=== PATIENT | male | born 1980 | race Asian ===

== ENCOUNTER 2017-02-27 16:16 | Inpatient (IN) | payer OTHER ==
[~2017-02-27] VITALS: Ht 172.7 cm; Wt 90.9 kg
[~2017-02-27 16:16] MED LIST: AMPH30CA3 PO; INSDGI SC; LISI-461 PO; METF-384 PO; NVLGI/PEN SC
[2017-02-27 17:52] LABS: URINE APPEARANCE CLEAR (CLEAR); URINE BILIRUBIN NEG (NEG); URINE COLOR YELLOW; URINE NITRITE NEG (NEG); URINE SPECIFIC GRAVITY 1.019 (1.000-1.030); UROBILINOGEN NEG (NEG)
--- NOTE | 2017-02-27 17:52 | EMERGENCY ROOM VISIT NOTE ---
History Report prepared by Layla: Howie Perez Under the Supervision of: Dr. Kee Morillo M.D. First contact with patient: 16:52 Chief Complaint: OTHER COMPLAINT Stated Complaint: KIDNEY DIALYSIS- PHYSICIAN REFERRED History of Present Illness The patient is a 37 year old male with a past medical history of chronic kidney disease, diabetes, hypertension, asthma, and hyperlipidemia who presents to the ED with a cc of high potassium and low GFR noticed earlier today. Positive leg swelling. Negative abdominal pain. The patient has an insulin pump. He was at a transplant screening, and he was told to go to his parking lot signaler who then told him to come to the ED. Source of History: patient Onset: earlier today Position: other (global) Quality: other (high potassium and low GFR) Associated Symptoms: No abdominal pain Note: Associated symptoms: Leg swelling Review of Systems See HPI for pertinent positives and negatives. A total of ten systems were reviewed and were otherwise negative. Past Medical & Surgical Medical Problems: (1) Asthma (2) Chronic kidney disease (3) Diabetes (4) HLD (hyperlipidemia) (5) HTN (hypertension) Family History Diabetes mellitus Social History Smoking Status: Never Smoker Marital Status: Housing Status: lives with family Occupation Status: unemployed Current/Historical Medications Scheduled Amlodipine (Norvasc), 10 MG PO DAILY Atorvastatin (Lipitor), 80 MG PO DAILY Carvedilol (Coreg), 25 MG PO BID Ergocalciferol (Vitamin D 27087 Unit), 50,000 UNIT PO WK Fenofibrate (Tricor), 54 MG PO DAILY Furosemide (Lasix), 20 MG PO UD Hydralazine Hcl (Apresoline), 100 MG PO BID Insulin Aspart (novoLOG INSULIN PUMP ), 1 EA N/A UD Losartan Potassium (Cozaar), 100 MG PO DAILY Mometasone Furoate-Formoterol (Dulera 100/5 Mcg), 2 PUFFS INH BID Ranitidine (Zantac), 150 MG PO DAILY Allergies Coded Allergies: No Known Allergies (Verified , 02/27/17) Physical Exam Vital Signs Date Time Temp Pulse Resp B/P (MAP) Pulse Ox O2 Delivery O2 Flow Rate FiO2 02/27/17 19:21 88 18 185/106 97 Room Air 02/27/17 17:32 87 02/27/17 16:22 36.7 101 18 151/86 94 Room Air Physical Exam GENERAL: Awake, alert, well-appearing, NAD HENT: Normocephalic, atraumatic. EYES: Normal conjunctiva. Sclera non-icteric. NECK: Supple. No nuchal rigidity. FROM. RESPIRATORY: Bibasilar crackles, no rhonchi, wheezing, CARDIAC: RRR, no MRG ABDOMEN: Soft, NTND, BS+ MSK: 2+ pitting edema in bilateral LE. No chest wall TTP NEURO: GCS 15, CN 2-12 intact, moves all 4s on command SKIN: No rash or jaundice noted. Medical Decision & Procedures ER Provider Diagnostic Interpretation: Radiology results as stated below per my review and radiologist interpretation: (RENAL)RETROPERITON COMP HISTORY: Abnormal urinalysis hyperK COMPARISON: None. FINDINGS: Right kidney: Maximum dimension 12.3 cm. Normal corticomedullary differentiation and cortical thickness. Left kidney: Maximum dimension 12.0 cm. Normal corticomedullary differentiation and cortical thickness. Bladder: No bladder wall thickening. The bilateral ureteral jets were identified. IMPRESSION: Normal renal ultrasound. No evidence for hydronephrosis. The above report was generated using voice recognition software. It may contain grammatical, syntax or spelling errors. Electronically signed by: Fer Zavala M.D. 02/27/2017 7:06 PM Dictated Date/Time: 02/27/2017 7:05 PM Laboratory Results 02/27/17 17:33 Red Blood Count 3.65, Mean Corpuscular Volume 86.6, Mean Corpuscular Hemoglobin 29.3, Mean Corpuscular Hemoglobin Concent 33.9, Mean Platelet Volume 9.5, Neutrophils (%) (Auto) 71.7, Lymphocytes (%) (Auto) 15.8, Monocytes (%) (Auto) 6.0, Eosinophils (%) (Auto) 5.6, Basophils (%) (Auto) 0.3, Neutrophils # (Auto) 6.35, Lymphocytes # (Auto) 1.40, Monocytes # (Auto) 0.53, Eosinophils # (Auto) 0.50, Basophils # (Auto) 0.03 02/27/17 17:33 Test 02/27/17 17:33 02/27/17 17:35 02/27/17 19:35 02/27/17 19:36 White Blood Count 8.86 K/uL (4.8-10.8) Red Blood Count 3.65 M/uL (4.7-6.1) Hemoglobin 10.7 g/dL (14.0-18.0) Hematocrit 31.6 % (42-52) Mean Corpuscular Volume 86.6 fL (80-100) Mean Corpuscular Hemoglobin 29.3 pg (25-34) Mean Corpuscular Hemoglobin Concent 33.9 g/dl (32-36) Platelet Count 384 K/uL (130-400) Mean Platelet Volume 9.5 fL (7.4-10.4) Neutrophils (%) (Auto) 71.7 % Lymphocytes (%) (Auto) 15.8 % Monocytes (%) (Auto) 6.0 % Eosinophils (%) (Auto) 5.6 % Basophils (%) (Auto) 0.3 % Neutrophils # (Auto) 6.35 K/uL (1.4-6.5) Lymphocytes # (Auto) 1.40 K/uL (1.2-3.4) Monocytes # (Auto) 0.53 K/uL (0.11-0.59) Eosinophils # (Auto) 0.50 K/uL (0-0.5) Basophils # (Auto) 0.03 K/uL (0-0.2) RDW Standard Deviation 38.9 fL (36.4-46.3) RDW Coefficient of Variation 12.3 % (11.5-14.5) Immature Granulocyte % (Auto) 0.6 % Immature Granulocyte # (Auto) 0.05 K/uL (0.00-0.02) Anion Gap 4.0 mmol/L (3-11) Est Creatinine Clear Calc Drug Dose 20.1 ml/min Estimated GFR () 14.0 Estimated GFR (Non- 12.1 BUN/Creatinine Ratio 7.6 (10-20) Calcium Level 7.8 mg/dl (8.5-10.1) Phosphorus Level 4.6 mg/dl (2.5-4.9) Magnesium Level 1.8 mg/dl (1.8-2.4) Total Bilirubin 0.3 mg/dl (0.2-1) Direct Bilirubin mg/dl (0-0.2) Aspartate Amino Transf (AST/SGOT) 33 U/L (15-37) Alanine Aminotransferase (ALT/SGPT) 35 U/L (12-78) Alkaline Phosphatase 62 U/L (45-117) Total Creatine Kinase 2423 U/L (39-308) Total Protein 6.1 gm/dl (6.4-8.2) Albumin 2.2 gm/dl (3.4-5.0) Lipase 202 U/L (73-393) Chemistry Specimen Hemolysis Urine Color YELLOW Urine Appearance CLEAR (CLEAR) Urine pH 7.0 (4.5-7.5) Urine Specific [place] 1.019 (1.000-1.030) Urine Protein 4+ (NEG) Urine Glucose (UA) 3+ (NEG) Urine Ketones NEG (NEG) Urine Occult Blood 1+ (NEG) Urine Nitrite NEG (NEG) Urine Bilirubin NEG (NEG) Urine Urobilinogen NEG (NEG) Urine Leukocyte Esterase NEG (NEG) Urine WBC (Auto) 1-5 /hpf (0-5) Urine RBC (Auto) 0-4 /hpf (0-4) Urine Hyaline Casts (Auto) 1-5 /lpf (0-5) Urine Epithelial Cells (Auto) 10-20 /lpf (0-5) Urine Bacteria (Auto) NEG (NEG) Urine Random Creatinine 52.0 mg/dl Urine Random Total Protein 571.8 mg/dl (0-11.9) Urine Protein/Creatinine Ratio 11.0 (0-0.2) Laboratory results reviewed by me ECG Indication: other (high potassium) Rate (beats per minute): 87 Rhythm: normal sinus Findings: other (Normal CA, QRS and QTC. Downward sloping ST segments in the inferior leads 3 and AVF. No other ST changes or T wave inversions.) ED Course 1731: The patient was evaluated in room B3. A complete history and physical exam was performed. 1849: I reevaluated the patient, and I updated him on the treatment plan. 1921: Discussed the patient's case with Dr. Chan. The patient will be evaluated for further treatment and disposition. Medical Decision The patient is a 37 year old male with a past medical history of chronic kidney disease, diabetes, hypertension, asthma, and hyperlipidemia who presents to the ED with a cc of high potassium and low GFR noticed earlier today. Positive leg swelling. Negative abdominal pain. Differential Diagnoses include: Worsening CKD, Obstructive uropathy, diabetic nephropathy. Patient was referred here by his parking lot signaler due to concerns of hyperkalemia which was 6 and clinic. Patient was evaluated at the bedside EKG showed normal CA and QRS intervals. He did not have PTs in all leads at this time. Patient did have a creatinine of 5.5 and potassium of 5.5. He spoke with the parking lot signaler stated he could be given Kayexalate 30 now nothing by mouth at midnight. Spoke with the hospitalist who agreed that the patient benefit from further inpatient treatment. I also told him that the parking lot signaler would like a vascular consultation for a permacath in the morning. Patient was admitted. Medication Reconcilliation Current Medication List: was personally reviewed by me Blood Pressure Screening Patient's blood pressure: Elevated blood pressure Monitored by the hospitalist Consults Time Called: 1906 Consulting Physician: Dr. Chan Returned Call: 1921 Discussed the patient's case with Dr. Chan. The patient will be evaluated for further treatment and disposition. Impression Primary Impression: Hyperkalemia Additional Impression: Acute renal failure Scribe Attestation The scribe's documentation has been prepared under my direction and personally reviewed by me in its entirety. I confirm that the note above accurately reflects all work, treatment, procedures, and medical decision making performed by me. Departure Information Dispostion Being Evaluated By Hospitalist Referrals Azael Keller M.D.(YESSENIA) (PCP) Patient Instructions [facility] Problem Qualifiers Additional Impression: Acute renal failure Acute renal failure type: unspecified Qualified Codes: N17.9 - Acute kidney failure, unspecified
[2017-02-27 17:54] LABS: MANUAL MICROSCOPIC REQUIRED? NO; REVIEW REQ? NO
[2017-02-27 17:59] LABS: BASO % 0.3 %; BASO ABS # 0.03 K/uL (0-0.2); COMPLETE YES; EOS % 5.6 %; HEMATOCRIT 31.6 % (42-52); IG% 0.6 %; LYMPH % 15.8 %; MEAN CELL VOLUME 86.6 fL (80-100); MEAN CORPUSCULAR HEMOGLOBIN 29.3 pg (25-34); MEAN CORPUSCULAR HGB CONC 33.9 g/dl (32-36); MEAN PLATELET VOLUME 9.5 fL (7.4-10.4); NEUT % 71.7 %; PLATELET COUNT 384 K/uL (130-400); RED BLOOD COUNT 3.65 M/uL (4.7-6.1); WHITE BLOOD COUNT 8.86 K/uL (4.8-10.8)
[2017-02-27] MEDS ORDERED: MOME100A INH (18:09)
[2017-02-27] MEDS ORDERED: AMLO-114 PO (18:09)
[2017-02-27] MEDS ORDERED: INSPMPNVLG (18:09)
[2017-02-27] MEDS ORDERED: FURO-85 PO (18:09)
[2017-02-27] MEDS ORDERED: ZNTT/150 PO (18:09)
[2017-02-27] MEDS ORDERED: ERGO500037 PO (18:09)
[2017-02-27] MEDS ORDERED: ATOR-26 PO (18:09)
[2017-02-27] MEDS ORDERED: LOSA1TAB38 PO (18:09)
[2017-02-27] MEDS ORDERED: CARV25TA2 PO (18:09)
[2017-02-27] MEDS ORDERED: FENO54TA PO (18:09)
[2017-02-27] MEDS ORDERED: HYDR100T12 PO (18:09)
[2017-02-27 18:13] LABS: URINE TOTAL PROTEIN 571.8 mg/dl (0-11.9)
[2017-02-27 18:58] LABS: ALKALINE PHOSPHATASE 62 U/L (45-117); ALT/SGPT 35 U/L (12-78); AST/SGOT 33 U/L (15-37); BLOOD UREA NITROGEN 42 mg/dl (7-18); BUN/CREATININE RATIO 7.6 (10-20); CALCIUM 7.8 mg/dl (8.5-10.1); CARBON DIOXIDE 24 mmol/L (21-32); CHLORIDE 111 mmol/L (98-107); MAGNESIUM 1.8 mg/dl (1.8-2.4); PHOSPHORUS 4.6 mg/dl (2.5-4.9); POTASSIUM 5.5 mmol/L (3.5-5.1); SODIUM 139 mmol/L (136-145)
--- NOTE | 2017-02-27 19:08 | DIAGNOSTIC IMAGING REPORT ---
(RENAL)RETROPERITON COMP HISTORY: Abnormal urinalysis hyperK COMPARISON: None. FINDINGS: Right kidney: Maximum dimension 12.3 cm. Normal corticomedullary differentiation and cortical thickness. Left kidney: Maximum dimension 12.0 cm. Normal corticomedullary differentiation and cortical thickness. Bladder: No bladder wall thickening. The bilateral ureteral jets were identified. IMPRESSION: Normal renal ultrasound. No evidence for hydronephrosis. The above report was generated using voice recognition software. It may contain grammatical, syntax or spelling errors. Electronically signed by: Fer Zavala M.D. 02/27/2017 7:06 PM Dictated Date/Time: 02/27/2017 7:05 PM
[2017-02-27 19:10] LABS: GLUCOSE 341 mg/dl (70-99)
[2017-02-27] MEDS ORDERED: INSULIN HUMAN REGULAR PER UNIT 10 UNITS in SYRINGE 0 ML IV STA (19:35)
[2017-02-27] MEDS ORDERED: INSULIN HUMAN REGULAR IV BOLUS 10 UNIT in SYRINGE 0 ML IV SCH (20:15)
[2017-02-27 20:32] LABS: BETA-HYDROXYBUTYRATE 0.55 mg/dL (0.2-2.81)
[2017-02-27 20:52] LABS: PARTIAL THROMBOPLASTIN RATIO 1.1
--- NOTE | 2017-02-27 21:30 | DIAGNOSTIC IMAGING REPORT ---
CHEST ONE VIEW PORTABLE HISTORY: renal failure COMPARISON: None. FINDINGS: The lungs are clear. The heart is borderline enlarged. No pleural effusions. No pneumothorax. IMPRESSION: Borderline enlargement cardiac silhouette. No acute process within the chest. Electronically signed by: Leroy Dill M.D. 02/27/2017 9:29 PM Dictated Date/Time: 02/27/2017 9:28 PM
[2017-02-27] MEDS ORDERED: ACETAMINOPHEN 325 MG TAB PO PRN (22:15)
[2017-02-27] MEDS ORDERED: NITROGLYCERIN 0.4 MG SL PER TAB CHARGE SL PRN (22:15)
[2017-02-27] MEDS ORDERED: ONDANSETRON INJ 2 MG/ML 2 ML VIAL IV PRN (22:15)
[2017-02-27] MEDS ORDERED: HYDROmorphone INJ 0.5 MG/0.5 ML SYR IV PRN (22:15)
[2017-02-27] MEDS ORDERED: TRAMADOL HCL 50 MG TAB PO PRN (22:15)
[2017-02-27] MEDS ORDERED: PHARMACY GLYCEMIC MGMT CONSULT PRN (22:25)
[2017-02-27] MEDS ORDERED: INSULIN IV INFUSION PROTOCOL SCH (22:44)
[2017-02-27] MEDS ORDERED: DC ALL PREVIOUSLY ORDERED DIABETES MEDS STA (22:44)
[2017-02-27] MEDS ORDERED: MODERATE STRESS LEVEL ONE (22:45)
[2017-02-27] MEDS ORDERED: INSULIN PROTOCOL GOAL RANGE ONE (22:45)
[2017-02-27 23:00] VITALS: BP 196/99; PULSE 98; TEMP 36.8; O2SAT 96; BMI 30.6
[2017-02-27] MEDS ORDERED: CARVEDILOL 25 MG TAB PO ONE (23:30)
[2017-02-27] MEDS: SODIUM CHLORIDE 0.9% 1000ML 1,000 ML IV SCH (23:37)
[2017-02-27] MEDS ORDERED: PNEUMOCOCCAL ADMINISTRATION CHARGE ONE (23:45)
[2017-02-27] MEDS ORDERED: PNEUMOCOCCAL POLYSACCHARIDES 25 MCG/0.5 ML VIAL/SYR IM. ONE (23:45)
[2017-02-28] VITALS (18 sets, daily range): BP systolic 133–166; BP diastolic 86–97; PULSE 86–105; TEMP 36.6–37; O2SAT 94–95; BMI 30.8
[2017-02-28] MEDS: INSULIN IV INFUSION PROTOCOL SCH ×3 (01:15→05:10)
[2017-02-28 06:28] LABS: BASO % 0.2 %; BASO ABS # 0.02 K/uL (0-0.2); COMPLETE YES; EOS % 7.4 %; HEMATOCRIT 29.4 % (42-52); IG% 0.2 %; LYMPH % 23.8 %; LYMPH ABS # 2.06 K/uL (1.2-3.4); MEAN CELL VOLUME 87.2 fL (80-100); MEAN CORPUSCULAR HEMOGLOBIN 29.4 pg (25-34); MEAN CORPUSCULAR HGB CONC 33.7 g/dl (32-36); MEAN PLATELET VOLUME 9.3 fL (7.4-10.4); MONO % 7.9 %; NEUT % 60.5 %; PLATELET COUNT 334 K/uL (130-400); RED BLOOD COUNT 3.37 M/uL (4.7-6.1); WHITE BLOOD COUNT 8.66 K/uL (4.8-10.8)
--- NOTE | 2017-02-28 07:01 | HISTORY & PHYSICAL EXAMINATION ---
DATE OF ADMISSION: 02/27/2017 PRIMARY CARE PHYSICIAN: Dr. Keller. CHIEF COMPLAINT: Abnormal blood work. HISTORY OF PRESENT ILLNESS: History obtained from the patient and records. Medical history significant for DM1 on an insulin pump, hypertension, hyperlipidemia, chronic anemia (baseline hemoglobin 9-10. ADD as per records, possible sleep apnea as per records; chronic renal insufficiency (baseline creatinine of 4). Patient saw his suit attendant yesterday for followup of worsening leg edema at the end of the day. No chest pain, no shortness of breath. Still making urine. Outpatient creatinine noted to be 5.3, potassium 6. Patient sent to the Emergency Room by suit attendant. MEDICAL HISTORY: As above. SURGERIES: He has had kidney biopsy procedures, eye procedures, appendectomy. HOME MEDICATIONS: Include Norvasc, Lipitor, Coreg, vitamin D, Lasix, Tricor, hydralazine, insulin pump, Cozaar, Dulera and Zantac. ALLERGIES. No known drug allergies. FAMILY HISTORY: Diabetes. PERSONAL AND SOCIAL HISTORY: Nonsmoker, no chronic intake of alcoholic beverages. A bar employee. REVIEW OF SYSTEMS: As per HPI, all other ROS negative. PHYSICAL EXAMINATION: VITAL SIGNS: Blood pressure was noted to be 185/106, pulse rate 88, RR 18, temperature 36.8, sats 97 on room air. GENERAL: Noted to be obese, no respiratory distress. SKIN: Sallow. HEENT: Pale palpebral conjunctivae. Dry mucosa. NECK: Short. CHEST: Decreased breath sounds. HEART: Regular rate and rhythm. ABDOMEN: Some distention, nontender. EXTREMITIES: min LE edema. No tenderness NEUROLOGIC: No gross focality. LABS: Hemoglobin was noted to be 10.7, hematocrit 31, white cell count is 8.8, platelets 184. Sodium noted to be 136, potassium 5.5, chloride 111, CO2 24, BUN 42, creatinine 5.5, glucose 341. CK was noted to be 2234. Hemoglobin A1c from October 2016 was noted to be 6.2. Renal ultrasound was normal. Chest x-ray showed border line cardiac enlargement. EKG as per my interpretation : normal sinus rhythm, no ischemia. UA occult blood. ASSESSMENT: 1. Hyperkalemia, acute renal failure on chronic kidney disease, possible end-stage renal disease 2. creatine phosphokinase elevation ? rhabdomyolysis 3. leg swelling secondary to kidney dysfunction, rule out deep venous thrombosis. 4. Chronic anemia, secondary to chronic kidney disease hemoglobin at baseline. 5. Hypertension, elevated. 6. DM1, on insulin pump. Currently, hyperglycemic recent outpatient hemoglobin A1c however shows good control PLAN: PCU mainly for hyperkalemia. Regular IV insulin to effect the cellular redistribution. Appropriate to hold home ARB for now IV fluids. Follow CPK Nephrology consult RE ARF on CKD. ER provider already in touch with suit attendant hollow tile partition erector, Dr. Vital. He recommends Vascular Surgery consult in the morning for dialysis access. Lower extremity Doppler ultrasound. Rule out DVT Facilitate nighttime BP meds Pharmacy glycemic control consult. Patient due for hemoglobin A1c recheck. DVT prophylaxis, Heparin subQ. Full code. MTDD
[2017-02-28 07:04] LABS: PROTHROMBIN TIME (PATIENT) 10.3 SECONDS (9.0-12.0)
--- NOTE | 2017-02-28 07:07 | DIAGNOSTIC IMAGING REPORT ---
ULTRASOUND VENOUS DOPPLER LWR EXT BILA CLINICAL HISTORY: leg swelling COMPARISON STUDY: No previous studies for comparison. FINDINGS: Real-time and color flow Doppler imaging were performed. Flow was seen within the femoral, popliteal and calf veins with no intraluminal thrombus demonstrated. The saphenous vein is patent. IMPRESSION: No evidence of lower extremity DVT. Electronically signed by: Alphonse Sharma M.D. 02/28/2017 7:06 AM Dictated Date/Time: 02/28/2017 7:06 AM
[2017-02-28 07:16] LABS: BUN/CREATININE RATIO 7.3 (10-20); CALCIUM 8.2 mg/dl (8.5-10.1); CREATININE 5.5 mg/dl (0.60-1.40)
[2017-02-28 07:49] LABS: ESTIMATED AVERAGE GLUCOSE 180 mg/dl; HA1C FLAG Normal (Normal)
[2017-02-28] MEDS: FENOFIBRATE 48 MG TAB PO SCH (07:58)
[2017-02-28] MEDS: AMLODIPINE BESYLATE 5 MG TAB PO SCH (07:58)
[2017-02-28] MEDS: CARVEDILOL 25 MG TAB PO SCH ×2 (07:58→21:50)
[2017-02-28] MEDS: RANITIDINE HCL 150 MG TAB PO SCH (07:58)
[2017-02-28] MEDS: INSULIN ASPART 100 UNITS/ML 3 ML PEN SC SCH ×4 (07:59→21:48)
[2017-02-28] MEDS: HEPARIN SOD 5000 UNIT/0.5 ML CARP SQ SCH ×2 (07:59→16:20)
[2017-02-28] MEDS ORDERED: INSULIN REGULAR 250 UNITS in SODIUM CHLORIDE 0.9% 250ML 250 ML IV SCH (08:45)
[2017-02-28] MEDS ORDERED: ATORVASTATIN 40 MG TAB PO SCH (09:00)
[2017-02-28 09:25] LABS: HEPATITIS B AB POS
--- NOTE | 2017-02-28 10:28 | Progress Note ---
Subjective Date of Service: Feb 28, 2017. Subjective Pt evaluation today including: conversation w/ patient, physical exam, lab review, review of studies, review of inpatient medication list Saw/examined the patient in room 209 Patient states he has no complaints; does admit to worsening swelling of the lower extremities Was sent over by sales planning manager's office due to worsening kidney function Currently states he is tired, but otherwise, no other issues to note Problem List Medical Problems: (1) Acute renal failure Status: Acute (2) Hyperkalemia Status: Acute Review of Systems Constitutional: No fever, No chills Respiratory: No cough, No sputum, No shortness of breath Cardiac: + edema, No chest pain Abdomen: No pain, No nausea, No vomiting, No diarrhea Psychiatric: No depression symptoms Heme: No abnormal bleeding/bruising Medications Current Inpatient Medications Medications (Trade) Dose Ordered Sig/Radha Route Start Time Stop Time Status Last Admin Dose Admin Hydralazine HCl (Apresoline Tab) 100 mg BID PO 02/27/17 21:00 03/29/17 20:59 02/28/17 07:58 100 MG Sodium Chloride 1,000 ml @ 60 mls/hr [id number] IV 02/27/17 22:15 03/29/17 22:14 02/27/17 23:37 60 MLS/HR Heparin Sodium (Porcine) (Heparin Sq 5000 Unit/0.5ml) 5,000 unit Q8H SQ 02/28/17 08:00 03/30/17 07:59 02/28/17 07:59 5,000 UNIT Acetaminophen (Tylenol Tab) 650 mg Q4H PRN PO 02/27/17 22:15 03/29/17 22:14 Nitroglycerin (Nitrostat Tab) 0.4 mg UD PRN SL 02/27/17 22:15 03/29/17 22:14 Amlodipine Besylate (Norvasc Tab) 10 mg DAILY PO 02/28/17 09:00 03/30/17 08:59 02/28/17 07:58 10 MG Carvedilol (Coreg Tab) 25 mg BID PO 02/28/17 09:00 03/30/17 08:59 02/28/17 07:58 25 MG Ranitidine HCl (zANTac TAB) 150 mg DAILY PO 02/28/17 09:00 03/30/17 08:59 8/17/17 07:58 150 MG Fenofibrate (Tricor Tab) 48 mg DAILY PO 02/28/17 09:00 03/30/17 08:59 02/28/17 07:58 48 MG Miscellaneous Information (Order Awaiting Action) 1 ea QS N/A 03/01/17 08:00 03/31/17 07:59 Hydromorphone HCl (Dilaudid Inj) 0.5 mg Q3H PRN IV 02/27/17 22:15 03/13/17 22:14 Tramadol HCl (Ultram Tab) 25 mg Q6H PRN PO 02/27/17 22:15 03/29/17 22:14 Ondansetron HCl (Zofran Inj) 4 mg Q6H PRN IV 02/27/17 22:15 03/29/17 22:14 Miscellaneous Information (Consult Glycemic Management Pharmacy) 1 ea UD PRN N/A 02/27/17 22:25 03/29/17 22:24 Insulin Aspart (novoLOG ASPART) [facility] 02/28/17 08:00 03/30/17 08:59 Insulin Human Regular 250 units/ Sodium Chloride 252.5 ml @ 0 mls/hr DAILY@1130 IV 02/28/17 08:45 03/30/17 08:44 02/28/17 09:23 1 MLS/HR Objective Vital Signs Date Time Temp Pulse Resp B/P (MAP) Pulse Ox O2 Delivery O2 Flow Rate FiO2 02/28/17 07:56 37.0 86 20 157/88 (111) 95 Room Air 02/28/17 03:51 Room Air 02/28/17 03:10 36.9 86 16 147/89 (108) 95 Room Air 02/28/17 01:25 36.9 94 18 164/96 (118) 95 Room Air 02/27/17 23:00 36.8 98 22 196/99 96 Room Air 02/27/17 22:30 97 18 187/108 97 Room Air 02/27/17 19:21 88 18 185/106 97 Room Air 02/27/17 17:32 87 02/27/17 16:22 36.7 101 18 151/86 94 Room Air Physical Exam General Appearance: no apparent distress Respiratory/Chest: chest non-tender, lungs clear, normal breath sounds, no respiratory distress, no accessory muscle use Cardiovascular: regular rate, rhythm, no gallop, no JVD, no murmur Abdomen: normal bowel sounds, non tender, soft Extremities: + pertinent finding (+1-2 pitting edema b/l LE) Neurologic/Psychiatric: no motor/sensory deficits, alert, normal mood/affect Laboratory Results Last 24 Hours Test 02/27/17 17:33 02/27/17 17:35 02/27/17 22:39 02/27/17 23:19 White Blood Count 8.86 K/uL Red Blood Count 3.65 M/uL Hemoglobin 10.7 g/dL Hematocrit 31.6 % Mean Corpuscular Volume 86.6 fL Mean Corpuscular Hemoglobin 29.3 pg Mean Corpuscular Hemoglobin Concent 33.9 g/dl Platelet Count 384 K/uL Mean Platelet Volume 9.5 fL Neutrophils (%) (Auto) 71.7 % Lymphocytes (%) (Auto) 15.8 % Monocytes (%) (Auto) 6.0 % Eosinophils (%) (Auto) 5.6 % Basophils (%) (Auto) 0.3 % Neutrophils # (Auto) 6.35 K/uL Lymphocytes # (Auto) 1.40 K/uL Monocytes # (Auto) 0.53 K/uL Eosinophils # (Auto) 0.50 K/uL Basophils # (Auto) 0.03 K/uL RDW Standard Deviation 38.9 fL RDW Coefficient of Variation 12.3 % Immature Granulocyte % (Auto) 0.6 % Immature Granulocyte # (Auto) 0.05 K/uL Activated Partial Thromboplast Time 29.8 SECONDS Partial Thromboplastin Ratio 1.1 Sodium Level 139 mmol/L Potassium Level 5.5 mmol/L 4.6 mmol/L Chloride Level 111 mmol/L Carbon Dioxide Level 24 mmol/L Anion Gap 4.0 mmol/L Blood Urea Nitrogen 42 mg/dl Creatinine 5.50 mg/dl Est Creatinine Clear Calc Drug Dose 20.1 ml/min Estimated GFR () 14.0 Estimated GFR (Non- 12.1 BUN/Creatinine Ratio 7.6 Random Glucose 341 mg/dl Estimated Average Glucose 180 mg/dl Hemoglobin A1c 7.9 % Calcium Level 7.8 mg/dl Phosphorus Level 4.6 mg/dl Magnesium Level 1.8 mg/dl Total Bilirubin 0.3 mg/dl Direct Bilirubin mg/dl Aspartate Amino Transf (AST/SGOT) 33 U/L Alanine Aminotransferase (ALT/SGPT) 35 U/L Alkaline Phosphatase 62 U/L Total Creatine Kinase 2423 U/L Total Protein 6.1 gm/dl Albumin 2.2 gm/dl Lipase 202 U/L Beta-Hydroxybutyric Acid 0.55 mg/dL Thyroid Stimulating Hormone (TSH) 4.190 uIu/ml Chemistry Specimen Hemolysis Urine Color YELLOW Urine Appearance CLEAR Urine pH 7.0 Urine Specific [place] 1.019 Urine Protein 4+ Urine Glucose (UA) 3+ Urine Ketones NEG Urine Occult Blood 1+ Urine Nitrite NEG Urine Bilirubin NEG Urine Urobilinogen NEG Urine Leukocyte Esterase NEG Urine WBC (Auto) 1-5 /hpf Urine RBC (Auto) 0-4 /hpf Urine Hyaline Casts (Auto) 1-5 /lpf Urine Epithelial Cells (Auto) 10-20 /lpf Urine Bacteria (Auto) NEG Urine Random Creatinine 52.0 mg/dl Urine Random Total Protein 571.8 mg/dl Urine Protein/Creatinine Ratio 11.0 Bedside Glucose 115 mg/dl Test 02/28/17 01:18 02/28/17 03:13 02/28/17 05:14 02/28/17 05:47 Bedside Glucose 84 mg/dl 98 mg/dl 107 mg/dl White Blood Count 8.66 K/uL Red Blood Count 3.37 M/uL Hemoglobin 9.9 g/dL Hematocrit 29.4 % Mean Corpuscular Volume 87.2 fL Mean Corpuscular Hemoglobin 29.4 pg Mean Corpuscular Hemoglobin Concent 33.7 g/dl Platelet Count 334 K/uL Mean Platelet Volume 9.3 fL Neutrophils (%) (Auto) 60.5 % Lymphocytes (%) (Auto) 23.8 % Monocytes (%) (Auto) 7.9 % Eosinophils (%) (Auto) 7.4 % Basophils (%) (Auto) 0.2 % Neutrophils # (Auto) 5.24 K/uL Lymphocytes # (Auto) 2.06 K/uL Monocytes # (Auto) 0.68 K/uL Eosinophils # (Auto) 0.64 K/uL Basophils # (Auto) 0.02 K/uL RDW Standard Deviation 39.6 fL RDW Coefficient of Variation 12.3 % Immature Granulocyte % (Auto) 0.2 % Immature Granulocyte # (Auto) 0.02 K/uL Prothrombin Time 10.3 SECONDS Prothromb Time International Ratio 1.0 Sodium Level 145 mmol/L Potassium Level 5.0 mmol/L Chloride Level 115 mmol/L Carbon Dioxide Level 24 mmol/L Anion Gap 6.0 mmol/L Blood Urea Nitrogen 39 mg/dl Creatinine 5.50 mg/dl Est Creatinine Clear Calc Drug Dose 20.0 ml/min Estimated GFR () 14.0 Estimated GFR (Non- 12.1 BUN/Creatinine Ratio 7.3 Random Glucose 116 mg/dl Calcium Level 8.2 mg/dl Total Creatine Kinase 1322 U/L Test 02/28/17 08:00 02/28/17 08:33 Bedside Glucose 148 mg/dl Hepatitis B Surface Antigen NEG Hepatitis B Surface Antibody POS Assessment and Plan This is a 37 year old male with a PMH of type 1 diabetes on an insulin pump, diabetic nephropathy and CKD stage 4, diabetic retinopathy, HTN and LVH, HLD presents with bilateral lower extremity edema and worsening kidney function CHIDI superimposed on CKD stage 4 worsening kidney function, creatinine increasing from mid 3's to 4's and now 5.5 lower extremity edema, was seen by nephrology in the office on 02/27 and sent over due to worsening kidney function will likely need dialysis vascular surgery consulted for vascular access nephrology consulted for possible dialysis Type 1 Diabetes Mellitus insulin pump discontinued while inpatient insulin drip started, glycemic control consulted Ha1c = 7.9% should follow-up with endocrinology Uncontrolled HTN patient with uncontrolled HTN holding ARB for now due to kidney function, restart when okay with nephrology currently on hydralazine 100mg BID and amlodipine 10mg daily, Coreg 25mg BID max dose of amlodipine and Coreg, can increase hydralazine if needed DVT ppx subq heparin FULL CODE
--- NOTE | 2017-02-28 11:45 | Procedure Note ---
Pre-Mod Sedation Assessment General Date of Moderate Sedation: Feb 28, 2017. Vital Signs: Vital Signs Past 12 Hours Date Time Temp Pulse Resp B/P (MAP) Pulse Ox O2 Delivery O2 Flow Rate FiO2 02/28/17 08:00 Room Air 02/28/17 07:56 37.0 86 20 157/88 (111) 95 Room Air 02/28/17 03:51 Room Air 02/28/17 03:10 36.9 86 16 147/89 (108) 95 Room Air 02/28/17 01:25 36.9 94 18 164/96 (118) 95 Room Air Pre-Sedation Airway Assessment Oral Cavity: WNL Smoking Status: Never Smoker Mallampati Classification: Class I ASA Classification: Class IV Notes The planned sedation has been discussed with the patient and consent obtained. I have identified the patient, determined the appropriateness of sedation and have assessed the patient immediately prior to the procedure. All medicine(s) and interventions are by my order.
[2017-02-28] MEDS ORDERED: FENTANYL CITRATE INJ 50 MCG/1 ML 2 ML VIAL ONE (12:09)
[2017-02-28] MEDS ORDERED: MIDAZOLAM HCL 1 MG/ML 2ML VIAL ONE (12:09)
[2017-02-28] MEDS ORDERED: HEPARIN SOD (PORCINE) 5000 UNIT/ML 1 ML VIAL ONE (12:09)
[2017-02-28] MEDS ORDERED: CEFAZOLIN IV 2,000 MG/60 ML D5W IV ONE ×2 (12:30→12:31)
--- NOTE | 2017-02-28 12:31 | Surgery Consultation ---
Consultation Date of Service Feb 28, 2017. Chief Complaint End stage renal disease History of Present Illness The patient is a 37 year old male with DM who has developed renal failure in need of dialysis. Admitted not for insertion of permcath and start of dialysis Vitals Vital Signs Past 12 Hours Date Time Temp Pulse Resp B/P (MAP) Pulse Ox O2 Delivery O2 Flow Rate FiO2 02/28/17 12:11 36.7 94 20 151/89 94 Room Air 02/28/17 12:04 36.7 94 20 151/89 (109) 94 Room Air 02/28/17 08:00 Room Air 02/28/17 07:56 37.0 86 20 157/88 (111) 95 Room Air 02/28/17 03:51 Room Air 02/28/17 03:10 36.9 86 16 147/89 (108) 95 Room Air 02/28/17 01:25 36.9 94 18 164/96 (118) 95 Room Air Allergies Coded Allergies: No Known Allergies (Verified , 02/27/17) Home Medications Scheduled Amlodipine (Norvasc), 10 MG PO DAILY Atorvastatin (Lipitor), 80 MG PO DAILY Carvedilol (Coreg), 25 MG PO BID Ergocalciferol (Vitamin D 88321 Unit), 50,000 UNIT PO WK Fenofibrate (Tricor), 54 MG PO DAILY Furosemide (Lasix), 20 MG PO UD Hydralazine Hcl (Apresoline), 100 MG PO BID Insulin Aspart (novoLOG INSULIN PUMP ), 1 EA N/A UD Losartan Potassium (Cozaar), 100 MG PO DAILY Mometasone Furoate-Formoterol (Dulera 100/5 Mcg), 2 PUFFS INH BID Ranitidine (Zantac), 150 MG PO DAILY Problem List Medical Problems: (1) Asthma (2) Chronic kidney disease (3) Diabetes (4) ESRD (end stage renal disease) (5) HLD (hyperlipidemia) (6) HTN (hypertension) Surgical / Medical History Hx Cardiac Surgery: No Hx Abdominal Surgery: No Hx Cancer Surgery: No Hx Thoracic Surgery: No Hx Orthopedic: No Hx Urinary Tract Surgery: No HX Other Surgery: Yes (appendectomy) Past Medical/Surgical History: Diabetes, High Cholesterol, Hypertension, Kidney Disease Family History Diabetes mellitus Social History Smoking Status: Never Smoker Hx Tobacco Use In Past Year?: No Hx Alcohol Use - Type & Amnt: No Hx Substance Use -Type & Amnt: No Review of Systems Constitutional: No chills, No diaphoresis, No fever, No malaise, No weakness, No weight gain, No weight loss, No sweats, No fatigue, No problem reported Respiratory: No cough, No cyanosis, No MONROE, No hemoptysis, No orthopnea, No PND , No short of breath, No sputum production, No stridor, No wheezing, No dyspnea , No problem reported Cardiovascular: No chest pain, No chest tightness, No chest pressure, No palpitations, No syncope, No diaphoresis, No edema, No intermittent claudication , No orthopnea, No cyanosis, No mumur, No lightheadedness, No paroxysmal nocturnal dyspnea, No problem reported Gastrointestinal: No abdominal pain, No constipation, No diarrhea, No nausea, No vomiting, No anorexia, No appetite changes, No belching, No flatulence, No food intolerance, No hematemesis, No hemorrhoids, No hematochezia, No stool changes, No heartburn, No indigestion, No dysphagia, No rectal bleeding, No problem reported Musculoskeletal: No back pain, No gout, No joint pain, No joint swelling, No muscle pain, No muscle stiffness, No muscle weakness, No neck pain, No problem reported Neurologic: No dizziness, No weakness, No headache, No lethargy, No numbness, No paresthesia, No pre-existing deficit, No seizures, No tics, No tingling, No tremors, No vertigo, No memory loss, No LOC, No problem reported Psychiatric: No anxiety, No alcohol abuse, No auditory hallucinations, No depression, No drug abuse, No homicidal ideation, No mood changes, No suicidal ideation, No visual hallucinations, No problem reported Physical Exam Constitutional: General Apperance: heathly-appearing, well-nourished, well-developed Level of Distress: NAD Ambulation: ambulating normally Psychiatric: Mental Status: active & alert, normal mood, normal affect Orientation: oriented except where noted, to time, to place, to person Memory: recent memory normal, remote memory normal Neck: supple Lungs: Auscultation: breath sounds normal Cardiovascular: Heart Auscultation: RRR Peripheral Pulses: Pulses: full and equal, in all extremities except if noted Abdomen: Inspection & Palpation: soft Musculoskeletal: normal Extremities: Upper Right: no cyanosis, no edema, no varicosities, no palpable cord, no clubbing, no ulcers, no mottling Upper Left: no cyanosis, no edema, no palpable cord, no clubbing, no ulcers , no mottling Lower Right: no cyanosis, no edema, no varicosities, no palpable cord, no clubbing, no ulcers, no mottling Lower Left: no cyanosis, no edema, no varicosities, no palpable cord, no clubbing, no ulcers, no mottling Neurologic: Cranial Nerves: grossly intact Sensation: grossly intact Assessment and Plan Imp: End stage renal disease Plan: Patient for permcath insertion . I have discussed the risks options and benefits of the procedure with the patient. The patient understands the risks options and benefits and agrees to the procedure.
[2017-02-28] MEDS ORDERED: MIDAZOLAM HCL 1 MG/ML 2ML VIAL IV ONE ×2 (12:49→12:54)
[2017-02-28] MEDS ORDERED: FENTANYL CITRATE INJ 50 MCG/1 ML 2 ML VIAL IV ONE (12:49)
[2017-02-28] MEDS ORDERED: LIDOCAINE HCL 1% 20 ML VIAL INJ ONE ×3 (12:54→13:01)
[2017-02-28] MEDS ORDERED: HEPARIN SOD (PORCINE) 5000 UNIT/ML 1 ML VIAL IV ONE (13:10)
--- NOTE | 2017-02-28 13:12 | [facility] Post Operative Brief Note ---
Immediate Operative Summary Operative Date Feb 28, 2017. Pre-Operative Diagnosis end stage renal disease Post-Operative Diagnosis same Procedure(s) Performed Insertion Of Perm Catheter, Right Internal Jugular Approach, Ultrasound Localization Of Right Internal Jugular Vein, Fluoroscopy For Positioning, Moderate Concious Sedation [address] Bauman It Help Desk Manager Surgeon(s) Tony Messer MD Estimated Blood Loss 2 ml Findings tip in distal SVC Specimens none Anesthesia Local with sedation Complication(s) None Disposition
--- NOTE | 2017-02-28 13:12 | Procedure Note ---
Post-Moderate Sedation Plan General Date of Moderate Sedation Feb 28, 2017. Vital Signs: Vital Signs Past 12 Hours Date Time Temp Pulse Resp B/P (MAP) Pulse Ox O2 Delivery O2 Flow Rate FiO2 02/28/17 12:11 36.7 94 20 151/89 94 Room Air 02/28/17 12:04 36.7 94 20 151/89 (109) 94 Room Air 02/28/17 08:00 Room Air 02/28/17 07:56 37.0 86 20 157/88 (111) 95 Room Air 02/28/17 03:51 Room Air 02/28/17 03:10 36.9 86 16 147/89 (108) 95 Room Air 02/28/17 01:25 36.9 94 18 164/96 (118) 95 Room Air Review - Discharge Plan Post Moderate Sedation Plan: On clinical assessment, the patient appears to have tolerated the conscious sedation without complications. Patient is recovering as anticipated. Patient will continue to be monitored by nursing and may be discharged when conscious sedation discharge criteria are met.
--- NOTE | 2017-02-28 13:13 | [facility] Operative Report ---
Operative Report Operative Date Feb 28, 2017. Pre-Operative Diagnosis end stage renal disease Post-Operative Diagnosis same Procedure(s) Performed Insertion Of Perm Catheter, Right Internal Jugular Approach, Ultrasound Localization Of Right Internal Jugular Vein, Fluoroscopy For Positioning, Moderate Concious Sedation [address] Bauman Museum Or [employer] Director Surgeon(s) Tony Messer Fellow Estimated Blood Loss 2 ml Findings tip of Permchath is in the SVC Specimens none Complication(s) None Disposition Recovery Room / PACU Indications acute on chronic renal failure requiring HD. Description of Procedure Patient was takent to the angio suite and placed in the supine position. The right side of the neck and chest wall were prepped and draped in a sterile manner. Local anesthesia was then administered to the appropriate areas of the neck and chest wall. Ultrasound was then used to locate the right internal jugular vein. The vein compressed easily, had no filing defects, and was patent. The vein was then punctured under direct ultrasound imaging. A guidewire was then passed centrally under fluoroscopic imaging. A stab wound was then made in the anterior chest wall and a 19 cm permcath was passed from the stab wound on the chest wall to the puncture site on the neck. The puncture site was then dilated till the 14Fr peel away sheath was inserted. The permcath was then inserted through the sheath to a central position in the distal superior vena cava. The peel away sheath was then removed. The catheter was then sutured in place using nylon sutures. The puncture was then closed using a 4-0 Vicryl subcuticular suture. Dermabond was used for a dressing on the puncture site. Both ports aspirated and flushed easily and were then packed with heparin. A sterile dressing was applied to the catheter. The patient left the angio suite in good condition and tolerated the procedure well. I, Dr. Bauman was present and scrubbed for the entire procedure. I attest to the content of the Intraoperative Record and any orders documented therein. Any exceptions are noted below.
--- NOTE | 2017-02-28 14:49 | Pharmacy Progress Note ---
Glycemic Control Intl Consult Date of Service Feb 28, 2017. Scope Glycemic Pharmacist consulted by Dr Chan on 02/27 for glycemic control and to write orders per [facility] inpatient glycemic control protocol Objective Weight (Kilograms): 91.800 Accuchecks BSG (last 24hrs): Test 02/27/17 17:33 02/27/17 22:39 02/28/17 01:18 02/28/17 03:13 Random Glucose 341 mg/dl (70-99) Bedside Glucose 115 mg/dl (70-99) 84 mg/dl (70-99) 98 mg/dl (70-99) Test 02/28/17 05:14 02/28/17 05:47 02/28/17 08:00 02/28/17 09:22 Bedside Glucose 107 mg/dl (70-99) 148 mg/dl (70-99) 167 mg/dl (70-99) Random Glucose 116 mg/dl (70-99) Test 02/28/17 11:03 02/28/17 13:09 02/28/17 14:04 Bedside Glucose 149 mg/dl (70-99) 175 mg/dl (70-99) 159 mg/dl (70-99) Laboratory Data (last 24hrs) Test 02/27/17 17:33 02/27/17 23:19 02/28/17 05:47 Anion Gap 4.0 mmol/L 6.0 mmol/L BUN/Creatinine Ratio 7.6 7.3 Blood Urea Nitrogen 42 mg/dl 39 mg/dl Creatinine 5.50 mg/dl 5.50 mg/dl Hemoglobin A1c 7.9 % Potassium Level 5.5 mmol/L 4.6 mmol/L 5.0 mmol/L Sodium Level 139 mmol/L 145 mmol/L White Blood Count 8.86 K/uL 8.66 K/uL Red Blood Count 3.65 M/uL 3.37 M/uL Hemoglobin 10.7 g/dL 9.9 g/dL Hematocrit 31.6 % 29.4 % Mean Corpuscular Volume 86.6 fL 87.2 fL Mean Corpuscular Hemoglobin 29.3 pg 29.4 pg Mean Corpuscular Hemoglobin Concent 33.9 g/dl 33.7 g/dl Platelet Count 384 K/uL 334 K/uL Mean Platelet Volume 9.5 fL 9.3 fL Neutrophils (%) (Auto) 71.7 % 60.5 % Lymphocytes (%) (Auto) 15.8 % 23.8 % Monocytes (%) (Auto) 6.0 % 7.9 % Eosinophils (%) (Auto) 5.6 % 7.4 % Basophils (%) (Auto) 0.3 % 0.2 % Neutrophils # (Auto) 6.35 K/uL 5.24 K/uL Lymphocytes # (Auto) 1.40 K/uL 2.06 K/uL Monocytes # (Auto) 0.53 K/uL 0.68 K/uL Eosinophils # (Auto) 0.50 K/uL 0.64 K/uL Basophils # (Auto) 0.03 K/uL 0.02 K/uL HbA1c Test 02/27/17 17:33 Hemoglobin A1c 7.9 % (4.5-5.6) H Recent Pertinent Medications Outpatient Anti-diabetic Regimen: * Novolog pump non-compliant * Basal 2 units/hr * Bolus 15 units with each meal * CF 25 mg/dL/unit * Goal range 140-160 The patient is currently receiving: * Insulin drip at ~1 unit/hr Risk Factors for Insulin Resistance: * None Risk Factors for Insulin Sensitivity: * NPO for dialysis cath placement Assessment & Plan ASSESSMENT: * 37 y/o male with type 1 diabetes admitted with CHIDI, elevated BSGs * He manages his BSGs as an outpatient with a Novolog pump (settings noted above ) and is non-compliant as per outpatient records - also is VERY heavily weighted on basal for a patient with type 1 diabetes (~0.5 units/kg) * It was discussed with the hospitalist overnight that since the patient's insulin needs were unknown and he was going for a dialysis cath placement today , it would be best to utilize an insulin drip to determine insulin needs and prevent hypoglycemia from giving too much SQ insulin * An insulin drip was started this AM when BSG went above 140, was on hold for ~ 1.5 hrs while he was in the OR, and was resumed ~1330 * Current rates are 1/2 of his basal rate on his pump PLAN FOR INPATIENT GLYCEMIC CONTROL: * Continue insulin drip for next 24 hours to get an idea of insulin needs * If patient needs to transition to SQ, would recommend basal/bolus injections instead of resuming patient's pump since it is so heavily weighted on basal * Recommend Lantus 20 units SQ x 1 * Overlap with insulin drip x 6 hours, may d/c earlier if directed by insulin drip calculator * Novolog ACHS - Goal 120-160 - CF 25 mg/dL/unit - CR 1 unit per 10 gm CHO consumed * Please note that the plan above was derived based on current level of insulin resistance and hospital stress. These recommendations are appropriate for inpatient admission only. Plan of care upon discharge will need to be reassessed to avoid potential outpatient hypo/hyperglycemia. Thank you.
[2017-02-28] MEDS: SODIUM CHLORIDE 0.9% 1000ML 1,000 ML IV SCH (14:55)
[2017-02-28] MEDS ORDERED: NURSING VERBAL MED ORDER ONE (15:15)
--- NOTE | 2017-02-28 15:43 | NEPHROLOGY CONSULTATION ---
DATE OF CONSULTATION: 02/28/2017 ATTENDING OF RECORD: Dr. Wolf. REASON FOR CONSULTATION: End-stage renal disease, not yet on dialysis with hyperkalemia. HISTORY OF PRESENT ILLNESS: This is a 37-year-old male who I have been following in my CKD clinic, who has CKD stage V secondary to diabetes for many years, who has been evaluated by transplant, currently not active on the list. The patient has been having worsening fluid retention. I saw the patient yesterday in clinic and had lab work done and potassium level was up to 6. I instructed the patient to go to the Emergency Room for further evaluation. The patient was admitted and was given medications to help control the potassium including insulin. The patient's potassium levels were 5.5 on admission and went down to 4.6 and then rebounded up to 5 this morning. Creatinine was 5.5. The patient underwent a tunneled dialysis catheter today and is currently undergoing dialysis on a 2K bath for 2 hours with 1 liter UF. The patient feels well. He understands the risks of dialysis. The patient is interested in peritoneal dialysis in the future. REVIEW OF SYSTEMS: No fevers or chills. No headaches. No blurry vision. No shortness of breath. No nausea or vomiting. No diarrhea or constipation. No dysuria. Positive worsening edema. No anorexia. Positive fatigue. No itching. All other review of systems is otherwise negative. PAST MEDICAL HISTORY: Type 1 diabetes, uncontrolled for many years on insulin pump, hypertension, and hyperlipidemia. PAST SURGICAL HISTORY: Kidney biopsy indicating diabetic nephropathy and appendectomy. FAMILY HISTORY: Significant for diabetes. SOCIAL HISTORY: No smoking, no alcohol, and no drugs. Works at a bar. CURRENT MEDICATIONS: Norvasc 10 mg a day, Lipitor 80 mg daily, Coreg 25 mg p.o. b.i.d., Tricor 48 mg daily, heparin 5000 units subQ q. 8 hours, hydralazine 100 mg p.o. b.i.d., sliding scale insulin, normal saline at 60 mL an hour, and Zantac 150 mg daily. PHYSICAL EXAMINATION: VITAL SIGNS: Temperature 36.6, pulse in the 90s, respiratory rate is 20, blood pressure 161/96, and satting 95% on room air. GENERAL: Awake, alert, and oriented x3. EYES: No scleral icterus. ENT: Moist mucous membranes. NECK: Supple. PULMONARY: Clear to auscultation. CARDIAC: Regular rate and rhythm. ABDOMEN: Bowel sounds positive. Soft and nontender. EXTREMITIES: +1 edema. NEUROLOGICALLY: Nonfocal. DERMATOLOGIC: No rash or ulcers noted. LABORATORY DATA: White count 8, H&H 9.9 and 29.4, and platelet count is 334. Sodium level is 145, potassium is 5, chloride is 115, bicarbonate is 24, BUN is 39, creatinine is 5.5, glucose is 116, and calcium is 8.2. Total CK was 2423 on admission and is now 1322. Protein-creatinine ratio is 11 grams. UA shows 4+ protein, 3+ glucose, 1+ blood, and 0-4 RBCs. INR is 1. Herpes surface antibody positive. Renal ultrasound, which was done, shows normal renal ultrasound, no evidence for hydro. Venous Doppler study showed no evidence of lower extremity DVT. Chest x-ray shows borderline enlargement of cardiac silhouette, no acute process within the chest. IMPRESSION AND PLAN: 1. End-stage renal disease: The patient's creatinine has progressed to 5.5 and now having issues with elevated potassium levels. I feel that the prudent course is to initiate dialysis, underwent a tunneled dialysis catheter and have a short dialysis treatment today. We will plan on a dialysis treatment tomorrow. Okay with discharge tomorrow after dialysis; however, trying to set up dialysis next week with the [facility]. The patient is interested in peritoneal dialysis. Once he is established at the hemodialysis unit, we will do a home visit and if okay with the home visit, we will refer for PD catheter placement. 2. Anemia of renal failure. Hemoglobin levels have been in the 9s, but has not yet started on Procrit. 3. Renal osteodystrophy. We will follow phosphorous levels and start the patient on binders accordingly once he is set up at the outpatient dialysis unit. 4. Hypertension. Blood pressure is elevated; however, we will start to remove fluid on dialysis which will hopefully improve blood pressures. 5. Transplant. The patient has been evaluated by transplant, currently not active on the list. He does have 2 potential donors and hopefully, becomes activated on the list and would be able to get donor transplantation in the near future. For now undergoing dialysis now, tolerating it well. No pain. Catheter is working well with no signs of bleeding. Tentative plan is to discharge tomorrow after dialysis and set up outpatient dialysis next week. I appreciate the consultation. THANH
[2017-03-01] VITALS (19 sets, daily range): BP systolic 122–184; BP diastolic 67–101; PULSE 86–106; TEMP 36.8–37.1; O2SAT 92–94; Ht 172.7 cm; Wt 90.9 kg
[2017-03-01] MEDS: HEPARIN SOD 5000 UNIT/0.5 ML CARP SQ SCH ×3 (00:12→16:00)
[2017-03-01] MEDS ORDERED: CEFAZOLIN 2000 MG/60 ML D5W IV SCH (06:00)
--- NOTE | 2017-03-01 06:59 | Nephrology Progress Note ---
Nephrology Progress Note Date of Service: Mar 01, 2017. Subjective 37 yo male with ESRD with tunneled line placement and initiation of dialysis yesterday. pt tolerated short treatment well. resting comfortably this morning. edema in legs much improved Objective Date Time Temp Pulse Resp B/P (MAP) Pulse Ox O2 Delivery O2 Flow Rate FiO2 03/01/17 04:00 Room Air 03/01/17 03:38 36.8 89 16 138/80 (99) 92 03/01/17 00:12 37.0 106 16 160/93 (115) 93 Room Air 03/01/17 00:00 Room Air 02/28/17 20:00 Room Air 02/28/17 19:43 36.9 98 18 166/89 (114) 95 Room Air 02/28/17 16:02 36.9 99 144/87 (106) 02/28/17 16:00 Room Air 02/28/17 15:55 36.9 99 20 144/87 (106) 95 Room Air 02/28/17 15:30 103 142/86 02/28/17 15:15 104 133/89 02/28/17 15:00 105 150/94 02/28/17 14:45 101 150/94 02/28/17 14:30 100 157/93 02/28/17 14:15 100 161/96 02/28/17 14:00 102 159/97 02/28/17 13:50 95 157/92 02/28/17 13:45 36.6 96 154/94 (114) 02/28/17 13:26 36.7 96 20 153/96 (115) 95 Room Air 02/28/17 13:20 Room Air 02/28/17 13:12 95 20 154/83 99 Nasal Cannula 4 02/28/17 12:11 36.7 94 20 151/89 94 Room Air 02/28/17 12:04 36.7 94 20 151/89 (109) 94 Room Air 02/28/17 08:00 Room Air 02/28/17 07:56 37.0 86 20 157/88 (111) 95 Room Air Physical Exam: General-aaox3 Eyes-no scleral icterus ENT-mmm Neck-supple Lungs-cta Heart-rrr Abdomen-bs+ s/nt/nd Extremities-mild edema Neuro-nonfocal Current Inpatient Medications Medications (Trade) Dose Ordered Sig/Radha Route Start Time Stop Time Status Last Admin Dose Admin Hydralazine HCl (Apresoline Tab) 100 mg BID PO 02/27/17 21:00 03/29/17 20:59 02/28/17 21:50 100 MG Heparin Sodium (Porcine) (Heparin Sq 5000 Unit/0.5ml) 5,000 unit Q8H SQ 02/28/17 08:00 03/30/17 07:59 03/01/17 00:12 5,000 UNIT Acetaminophen (Tylenol Tab) 650 mg Q4H PRN PO 02/27/17 22:15 03/29/17 22:14 Nitroglycerin (Nitrostat Tab) 0.4 mg UD PRN SL 02/27/17 22:15 03/29/17 22:14 Amlodipine Besylate (Norvasc Tab) 10 mg DAILY PO 02/28/17 09:00 03/30/17 08:59 02/28/17 07:58 10 MG Carvedilol (Coreg Tab) 25 mg BID PO 02/28/17 09:00 03/30/17 08:59 02/28/17 21:50 25 MG Ranitidine HCl (zANTac TAB) 150 mg DAILY PO 02/28/17 09:00 03/30/17 08:59 02/28/17 07:58 150 MG Fenofibrate (Tricor Tab) 48 mg DAILY PO 02/28/17 09:00 03/30/17 08:59 02/28/17 07:58 48 MG Miscellaneous Information (Order Awaiting Action) 1 ea QS N/A 03/01/17 08:00 03/31/17 07:59 Hydromorphone HCl (Dilaudid Inj) 0.5 mg Q3H PRN IV 02/27/17 22:15 03/13/17 22:14 Tramadol HCl (Ultram Tab) 25 mg Q6H PRN PO 02/27/17 22:15 03/29/17 22:14 Ondansetron HCl (Zofran Inj) 4 mg Q6H PRN IV 02/27/17 22:15 03/29/17 22:14 Miscellaneous Information (Consult Glycemic Management Pharmacy) 1 ea UD PRN N/A 02/27/17 22:25 03/29/17 22:24 Insulin Aspart (novoLOG ASPART) SLIDING SCALE PCHS SC 02/28/17 08:00 03/30/17 08:59 Insulin Human Regular 250 units/ Sodium Chloride 252.5 ml @ 0 mls/hr DAILY@1130 IV 02/28/17 08:45 03/30/17 08:44 02/28/17 09:23 1 MLS/HR Cefazolin Sodium 60 ml @ 100 mls/hr PREOP IV 03/01/17 06:00 03/01/17 18:00 Last 24 Hours Test 02/28/17 08:00 02/28/17 08:33 02/28/17 09:22 02/28/17 11:03 Bedside Glucose 148 mg/dl 167 mg/dl 149 mg/dl Hepatitis B Surface Antigen NEG Hepatitis B Surface Antibody POS Test 02/28/17 13:09 02/28/17 14:04 02/28/17 14:55 02/28/17 15:58 Bedside Glucose 175 mg/dl 159 mg/dl 131 mg/dl 122 mg/dl Test 02/28/17 17:01 02/28/17 17:11 02/28/17 18:13 02/28/17 20:03 Bedside Glucose 148 mg/dl 176 mg/dl 157 mg/dl Test 02/28/17 22:13 02/28/17 23:20 03/01/17 00:55 03/01/17 01:56 Bedside Glucose 180 mg/dl 146 mg/dl 135 mg/dl 127 mg/dl Test 03/01/17 02:53 03/01/17 05:09 03/01/17 05:46 Bedside Glucose 123 mg/dl 115 mg/dl Assessment & Plan ESRD-plan on dialysis treatment again today. ok to go home after dialysis today. greatly appreciate community case manager's help. trying to set up dialysis at [facility]. if unable to get set up for saturday, ok to start on saturday. recommended he avoid high potassium foods and have stopped his arb. Anemia of renal failure-hg levels are stable. will start procrit at outpt unit [facility]-phos levels are acceptable.
[2017-03-01 07:10] LABS: BUN/CREATININE RATIO 7.3 (10-20); CALCIUM 7.8 mg/dl (8.5-10.1); CREATININE 5.4 mg/dl (0.60-1.40)
[2017-03-01 07:11] LABS: POTASSIUM 4.1 mmol/L (3.5-5.1)
[2017-03-01] MEDS: INSULIN ASPART 100 UNITS/ML 3 ML PEN SC SCH ×2 (08:00→12:00)
--- NOTE | 2017-03-01 10:38 | Progress Note ---
Subjective Date of Service: Mar 01, 2017. Subjective Pt evaluation today including: conversation w/ patient, physical exam, lab review, review of studies, review of inpatient medication list Saw/examined the patient in room 209 Currently receiving dialysis Received temporary tunneled catheter yesterday and dialysis afterwards, did well No other issues to note Problem List Medical Problems: (1) Acute renal failure Status: Acute (2) Hyperkalemia Status: Acute Review of Systems Constitutional: No fever, No chills Respiratory: No shortness of breath Cardiac: No chest pain, No palpitations Abdomen: No pain, No nausea, No vomiting, No diarrhea, No constipation, No GI bleeding Medications Current Inpatient Medications Medications (Trade) Dose Ordered Sig/Radha Route Start Time Stop Time Status Last Admin Dose Admin Hydralazine HCl (Apresoline Tab) 100 mg BID PO 02/27/17 21:00 03/29/17 20:59 02/28/17 21:50 100 MG Heparin Sodium (Porcine) (Heparin Sq 5000 Unit/0.5ml) 5,000 unit Q8H SQ 02/28/17 08:00 03/30/17 07:59 03/01/17 00:12 5,000 UNIT Acetaminophen (Tylenol Tab) 650 mg Q4H PRN PO 02/27/17 22:15 03/29/17 22:14 Nitroglycerin (Nitrostat Tab) 0.4 mg UD PRN SL 02/27/17 22:15 03/29/17 22:14 Amlodipine Besylate (Norvasc Tab) 10 mg DAILY PO 02/28/17 09:00 03/30/17 08:59 02/28/17 07:58 10 MG Carvedilol (Coreg Tab) 25 mg BID PO 02/28/17 09:00 03/30/17 08:59 02/28/17 21:50 25 MG Ranitidine HCl (zANTac TAB) 150 mg DAILY PO 02/28/17 09:00 03/30/17 08:59 02/28/17 07:58 150 MG Fenofibrate (Tricor Tab) 48 mg DAILY PO 02/28/17 09:00 03/30/17 08:59 02/28/17 07:58 48 MG Miscellaneous Information (Order Awaiting Action) 1 ea QS N/A 03/01/17 08:00 03/31/17 07:59 Hydromorphone HCl (Dilaudid Inj) 0.5 mg Q3H PRN IV 02/27/17 22:15 03/13/17 22:14 Tramadol HCl (Ultram Tab) 25 mg Q6H PRN PO 02/27/17 22:15 03/29/17 22:14 Ondansetron HCl (Zofran Inj) 4 mg Q6H PRN IV 02/27/17 22:15 03/29/17 22:14 Miscellaneous Information (Consult Glycemic Management Pharmacy) 1 ea UD PRN N/A 02/27/17 22:25 03/29/17 22:24 Insulin Aspart (novoLOG ASPART) SLIDING SCALE PCHS SC 02/28/17 08:00 03/30/17 08:59 Insulin Human Regular 250 units/ Sodium Chloride 252.5 ml @ 0 mls/hr DAILY@1130 IV 02/28/17 08:45 03/30/17 08:44 02/28/17 09:23 1 MLS/HR Cefazolin Sodium 60 ml @ 100 mls/hr PREOP IV 03/01/17 06:00 03/01/17 18:00 Objective Vital Signs Date Time Temp Pulse Resp B/P (MAP) Pulse Ox O2 Delivery O2 Flow Rate FiO2 03/01/17 09:45 96 161/95 03/01/17 09:30 101 184/101 03/01/17 09:15 99 177/99 03/01/17 09:00 98 163/91 03/01/17 08:51 93 165/90 03/01/17 08:39 36.9 96 158/92 (114) 03/01/17 08:03 36.8 91 16 172/97 (122) 94 Room Air 03/01/17 08:00 Room Air 03/01/17 04:00 Room Air 03/01/17 03:38 36.8 89 16 138/80 (99) 92 03/01/17 00:12 37.0 106 16 160/93 (115) 93 Room Air 03/01/17 00:00 Room Air 02/28/17 20:00 Room Air 02/28/17 19:43 36.9 98 18 166/89 (114) 95 Room Air 02/28/17 16:02 36.9 99 144/87 (106) 02/28/17 16:00 Room Air 02/28/17 15:55 36.9 99 20 144/87 (106) 95 Room Air 02/28/17 15:30 103 142/86 02/28/17 15:15 104 133/89 02/28/17 15:00 105 150/94 02/28/17 14:45 101 150/94 02/28/17 14:30 100 157/93 02/28/17 14:15 100 161/96 02/28/17 14:00 102 159/97 02/28/17 13:50 95 157/92 02/28/17 13:45 36.6 96 154/94 (114) 02/28/17 13:26 36.7 96 20 153/96 (115) 95 Room Air 02/28/17 13:20 Room Air 02/28/17 13:12 95 20 154/83 99 Nasal Cannula 4 02/28/17 12:11 36.7 94 20 151/89 94 Room Air 02/28/17 12:04 36.7 94 20 151/89 (109) 94 Room Air Physical Exam General Appearance: no apparent distress Respiratory/Chest: lungs clear, normal breath sounds, no respiratory distress, no accessory muscle use Cardiovascular: regular rate, rhythm, no murmur Extremities: + pertinent finding (+1 pitting edema b/l LE) Neurologic/Psychiatric: no motor/sensory deficits, alert, normal mood/affect Laboratory Results Last 24 Hours Test 02/28/17 11:03 02/28/17 13:09 02/28/17 14:04 02/28/17 14:55 Bedside Glucose 149 mg/dl 175 mg/dl 159 mg/dl 131 mg/dl Test 02/28/17 15:58 02/28/17 17:01 02/28/17 17:11 02/28/17 18:13 Bedside Glucose 122 mg/dl 148 mg/dl 176 mg/dl Test 02/28/17 20:03 02/28/17 22:13 02/28/17 23:20 03/01/17 00:55 Bedside Glucose 157 mg/dl 180 mg/dl 146 mg/dl 135 mg/dl Test 03/01/17 01:56 03/01/17 02:53 03/01/17 05:09 03/01/17 05:46 Bedside Glucose 127 mg/dl 123 mg/dl 115 mg/dl Sodium Level 140 mmol/L Potassium Level 4.1 mmol/L Chloride Level 107 mmol/L Carbon Dioxide Level 26 mmol/L Anion Gap 7.0 mmol/L Blood Urea Nitrogen 39 mg/dl Creatinine 5.40 mg/dl Est Creatinine Clear Calc Drug Dose 20.1 ml/min Estimated GFR () 14.3 Estimated GFR (Non- 12.4 BUN/Creatinine Ratio 7.3 Random Glucose 119 mg/dl Calcium Level 7.8 mg/dl Test 03/01/17 06:52 03/01/17 09:50 Bedside Glucose 126 mg/dl 211 mg/dl Assessment and Plan This is a 37 year old male with a PMH of type 1 diabetes on an insulin pump, diabetic nephropathy and CKD stage 4, diabetic retinopathy, HTN and LVH, HLD presents with bilateral lower extremity edema and worsening kidney function ERSD 03/01 received dialysis yesterday dialysis again today; plan for discharge with outpatient dialysis set up at [facility] will need AV fistula vs. peritoneal dialysis - appreciate nephrology input will d/c Joezaar on discharge, avoid high potassium foods 02/28 worsening kidney function, creatinine increasing from mid 3's to 4's and now 5.5 lower extremity edema, was seen by nephrology in the office on 02/27 and sent over due to worsening kidney function will likely need dialysis vascular surgery consulted for vascular access nephrology consulted for possible dialysis Type 1 Diabetes Mellitus insulin pump discontinued while inpatient insulin drip started, glycemic control consulted Ha1c = 7.9% should follow-up with endocrinology Uncontrolled HTN patient with uncontrolled HTN holding ARB for now due to kidney function, restart when okay with nephrology currently on hydralazine 100mg BID and amlodipine 10mg daily, Coreg 25mg BID max dose of amlodipine and Coreg, can increase hydralazine if needed DVT ppx subq heparin FULL CODE
--- NOTE | 2017-03-01 10:55 | Discharge Instructions ---
Discharge Instructions Date of Service Mar 01, 2017. Admission Reason for Admission: Esrd, Hyperkalemia Discharge Discharge Diagnosis / Problem: ESRD, Hyperkalemia Discharge Goals Goal(s): Decrease discomfort, Improve function, Diagnostic testing, Therapeutic intervention Activity Recommendations Activity Limitations: resume your previous activity . Instructions / Follow-Up Instructions / Follow-Up Please follow-up with Dr. Keller on March 05 at 11:25AM Stop taking Cozaar Avoid high potassium foods You will get dialysis as an outpatient, -- - follow-up with Dr. Vital, nephrology Current Hospital Diet Patient's current hospital diet: Diabetes Type 1 Diet, Renal Diet Discharge Diet Recommended Diet: Diabetes Type 1 Diet, Renal Diet, Low Potassium Diet (2g K) Procedures Procedures Performed: Insertion Of Perm Catheter, Right Internal Jugular Approach, Ultrasound Localization Of Right Internal Jugular Vein, Fluoroscopy For Positioning, Moderate Concious Sedation 1249 to 1311 Pending Studies Studies pending at discharge: no Laboratory Results Hemoglobin A1c Test 02/27/17 17:33 Range/Units Estimated Average Glucose 180 mg/dl Hemoglobin A1c 7.9 H 4.5-5.6 % Medical Emergencies . Who to Call and When: Medical Emergencies: If at any time you feel your situation is an emergency, please call 911 immediately. . Non-Emergent Contact Non-Emergency issues call your: Primary Care Provider, Jewel Bearing Driller . . "Provider Documentation" section prepared by Andria Wolf. . VTE Core Measure Inpt VTE Proph given/why not?: Unfractionated heparin SQ
--- NOTE | 2017-03-01 10:58 | Discharge Summary ---
Discharge Summary Date of Service Mar 01, 2017. Discharge Summary Admission Date: Feb 27, 2017 at 20:58 Discharge Date: Mar 01, 2017 Discharge Disposition: Home Principal Diagnosis: ESRD, Hyperkalemia Medication Reconciliation Continued Medications: Amlodipine (Norvasc) 10 Mg Tab 10 MG PO DAILY Atorvastatin (Lipitor) 80 Mg Tab 80 MG PO DAILY Carvedilol (Coreg) 25 Mg Tab 25 MG PO BID Ergocalciferol (Vitamin D 13938 Unit) 50,000 Unit Cap 28406 UNIT PO WK Fenofibrate (Tricor) 54 Mg Tab 54 MG PO DAILY Hydralazine Hcl (Apresoline) 100 Mg Tab 100 MG PO BID Insulin Aspart (novoLOG INSULIN PUMP ) 1 Ea Inj 1 EA N/A UD Mometasone Furoate-Formoterol (Dulera 100/5 Mcg) 1 Aer Aer 2 PUFFS INH BID Ranitidine (Zantac) 150 Mg Tab 150 MG PO DAILY Discontinued Medications: Furosemide (Lasix) 20 Mg Tab 20 MG PO UD 2 TABS AT 1800 1 TAB AT MIDNIGHT Losartan Potassium (Cozaar) 100 Mg Tab 100 MG PO DAILY Admission Information HPI (per Admitting provider): DATE OF ADMISSION: 02/27/2017 PRIMARY CARE PHYSICIAN: Dr. Keller. CHIEF COMPLAINT: Abnormal blood work. HISTORY OF PRESENT ILLNESS: History obtained from the patient and records. Medical history significant for DM1 on an insulin pump, hypertension, hyperlipidemia, chronic anemia (baseline hemoglobin 9-10. ADD as per records, possible sleep apnea as per records; chronic renal insufficiency (baseline creatinine of 4). Patient saw his retirement consultant yesterday for followup of worsening leg edema at the end of the day. No chest pain, no shortness of breath. Still making urine. Outpatient creatinine noted to be 5.3, potassium 6. Patient sent to the Emergency Room by retirement consultant. MEDICAL HISTORY: As above. SURGERIES: He has had kidney biopsy procedures, eye procedures, appendectomy. HOME MEDICATIONS: Include Norvasc, Lipitor, Coreg, vitamin D, Lasix, Tricor, hydralazine, insulin pump, Cozaar, Dulera and Zantac. ALLERGIES. No known drug allergies. FAMILY HISTORY: Diabetes. PERSONAL AND SOCIAL HISTORY: Nonsmoker, no chronic intake of alcoholic beverages. A bar employee. REVIEW OF SYSTEMS: As per HPI, all other ROS negative. PHYSICAL EXAMINATION: VITAL SIGNS: Blood pressure was noted to be 185/106, pulse rate 88, RR 18, temperature 36.8, sats 97 on room air. GENERAL: Noted to be obese, no respiratory distress. SKIN: Sallow. HEENT: Pale palpebral conjunctivae. Dry mucosa. NECK: Short. CHEST: Decreased breath sounds. HEART: Regular rate and rhythm. ABDOMEN: Some distention, nontender. EXTREMITIES: min LE edema. No tenderness NEUROLOGIC: No gross focality. LABS: Hemoglobin was noted to be 10.7, hematocrit 31, white cell count is 8.8, platelets 184. Sodium noted to be 136, potassium 5.5, chloride 111, CO2 24, BUN 42, creatinine 5.5, glucose 341. CK was noted to be 2234. Hemoglobin A1c from October 2016 was noted to be 6.2. Renal ultrasound was normal. Chest x-ray showed border line cardiac enlargement. EKG as per my interpretation : normal sinus rhythm, no ischemia. UA occult blood. ASSESSMENT: 1. Hyperkalemia, acute renal failure on chronic kidney disease, possible end-stage renal disease 2. creatine phosphokinase elevation ? rhabdomyolysis 3. leg swelling secondary to kidney dysfunction, rule out deep venous thrombosis. 4. Chronic anemia, secondary to chronic kidney disease hemoglobin at baseline. 5. Hypertension, elevated. 6. DM1, on insulin pump. Currently, hyperglycemic recent outpatient hemoglobin A1c however shows good control PLAN: PCU mainly for hyperkalemia. Regular IV insulin to effect the cellular redistribution. Appropriate to hold home ARB for now IV fluids. Follow [facility] Nephrology consult RE ARF on CKD. ER provider already in touch with retirement consultant supervisor epoxy fabrication, Dr. Vital. He recommends Vascular Surgery consult in the morning for dialysis access. Lower extremity Doppler ultrasound. Rule out DVT Facilitate nighttime BP meds Pharmacy glycemic control consult. Patient due for hemoglobin A1c recheck. DVT prophylaxis, Heparin subQ. Full code. Hospital Course This is a 37 year old male with a PMH of type 1 diabetes on an insulin pump, diabetic nephropathy and CKD stage 4, diabetic retinopathy, HTN and LVH, HLD presents with bilateral lower extremity edema and worsening kidney function ERSD 03/01 received dialysis yesterday dialysis again today; plan for discharge with outpatient dialysis set up at [facility] will need AV fistula vs. peritoneal dialysis - appreciate nephrology input will d/c Cozaar on discharge, avoid high potassium foods 02/28 worsening kidney function, creatinine increasing from mid 3's to 4's and now 5.5 lower extremity edema, was seen by nephrology in the office on 02/27 and sent over due to worsening kidney function will likely need dialysis vascular surgery consulted for vascular access nephrology consulted for possible dialysis Type 1 Diabetes Mellitus insulin pump discontinued while inpatient insulin drip started, glycemic control consulted Ha1c = 7.9% should follow-up with endocrinology Uncontrolled HTN patient with uncontrolled HTN holding ARB for now due to kidney function, restart when okay with nephrology currently on hydralazine 100mg BID and amlodipine 10mg daily, Coreg 25mg BID max dose of amlodipine and Coreg, can increase hydralazine if needed DVT ppx subq heparin FULL CODE Total time spent on discharge = 40 minutes This includes examination of the patient, discharge planning, medication reconciliation, and communication with other providers. Discharge Instructions Please follow-up with Dr. Keller on March 05 at 11:25AM Stop taking Cozaar Avoid high potassium foods You will get dialysis as an outpatient, M-W- - follow-up with Dr. Vital, nephrology
[2017-03-01] MEDS: RANITIDINE HCL 150 MG TAB PO SCH (11:33)
[2017-03-01] MEDS: AMLODIPINE BESYLATE 5 MG TAB PO SCH (11:33)
[2017-03-01] MEDS: CARVEDILOL 25 MG TAB PO SCH (11:34)
[2017-03-01] MEDS: FENOFIBRATE 48 MG TAB PO SCH (11:34)
--- NOTE | 2017-03-01 14:17 | Pharmacy Progress Note ---
Glycemic Control Progress Note Date of Service Mar 01, 2017. Scope Glycemic Pharmacist consulted for glycemic control to write orders per [facility] inpatient glycemic control protocol. Objective Accuchecks BSG (last 24hrs): Test 02/28/17 14:55 02/28/17 15:58 02/28/17 17:01 02/28/17 18:13 Bedside Glucose 131 mg/dl (70-99) 122 mg/dl (70-99) 148 mg/dl (70-99) 176 mg/dl (70-99) Test 02/28/17 20:03 02/28/17 22:13 02/28/17 23:20 03/01/17 00:55 Bedside Glucose 157 mg/dl (70-99) 180 mg/dl (70-99) 146 mg/dl (70-99) 135 mg/dl (70-99) Test 03/01/17 01:56 03/01/17 02:53 03/01/17 05:09 03/01/17 05:46 Bedside Glucose 127 mg/dl (70-99) 123 mg/dl (70-99) 115 mg/dl (70-99) Random Glucose 119 mg/dl (70-99) Test 03/01/17 06:52 03/01/17 09:50 03/01/17 11:28 03/01/17 13:06 Bedside Glucose 126 mg/dl (70-99) 211 mg/dl (70-99) 166 mg/dl (70-99) 273 mg/dl (70-99) HbA1c: Test 02/27/17 17:33 Hemoglobin A1c 7.9 % (4.5-5.6) H Recent Pertinent Medications The patient is currently receiving: * Insulin infusion at rates averaging 0.4-0.5 units/hr Outpatient Anti-Diabetic Meds Novolog insulin pump with settings of: basal = 3.0 units/hr correctional: Novolog 15 units with meals (manual bolus) Assessment & Plan ASSESSMENT: * See progress note from 02/27/17 for more background info, in short: Mr Miller is a 37 y/o M with type 1 diabetes on an insulin pump as an outpatient. He follows with the [facility] clinic at [facility]. He is currently on an insulin infusion as he has just started dialysis. * Pt receiving SQ basal bolus insulin regimen for hyperglycemia secondary to baseline DM (outpatient regimen on hold). * Patient is currently receiving an average of 12 units of insulin per day * 12 units of basal insulin * 0 units of prandial/correctional insulin (patient NPO) * BSGs ranging 126 - 211 (after patient ate) mg/dl over the past 24hrs RECOMMENDATIONS FOR DISCHARGE: * This pharmacist spent over 1 hour ensuring proper discharge for this patient. * Spoke with Mike Thornton at [facility]. 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 At the last appointment in December, the patient's blood sugars were 96% of the time over goal (goal is 140-160 mg/dL) and that he is basal heavy because the patient does not bolus. The morning blood sugar prior to the appointment was 326 mg/dL. The patient only checks his blood sugar once a day. He was concerned about utilizing a basal of 0.4 units/hr (which was the insulin drip rate) due to his experience with the patient. * Spoke with patient who was okay with basal bolus injections but preferred an insulin pump due to work conditions. * Spoke with Dr Wolf about discharge. Relayed concern regarding just starting dialysis (alters insulin sensitivities) and the large difference between basal rates of insulin drip and Novolog pump. He understood the concerns. Ultimately, Dr Wolf made the decision to resume the pump at discharge at a lower basal rate of 2.0 units/hr. The patient was walked through as he changed his insulin basal rate. [employer] will bring in the pump kit as the patient did not have the kit to set the pump up. During this time he will remain on the insulin drip. Once the patient administers the insulin pump, the insulin drip will be discontinued. No overlap will be utilized. No bolus given. * Patient set up to see Mike Thornton on Saturday at 10:30 AM. He was advised to check his blood sugars more often with the reduced rate of basal. Thank you.
[2017-03-03 20:31] LABS: HEP B QUANT <20 IU/mL (<20); HEP B QUANT LOG IU/ML <1.30 Log IU/mL (<1.30)
== END 2017-03-01 18:00 | disposition home or self-care (01) | DRG 674 ==
LOC: C.EDB 16:21 → C.2E 20:58 → ENRESERV 21:14
PROVIDERS: ADMIT Family Medicine; ATTEND Family Medicine
PROC: 0JH63XZ Insertion of Tunneled Vascular Access Device into Chest Subcutaneous Tissue and Fascia, Percutaneous Approach (ICD-10-PCS; principal; 2017-02-28 12:00)
PROC: 02HV33Z Insertion of Infusion Device into Superior Vena Cava, Percutaneous Approach (ICD-10-PCS; principal; 2017-02-28 12:00)
DX: N17.9 Acute kidney failure, unspecified (principal); I12.0 Hypertensive chronic kidney disease with stage 5 chronic kidney disease or end stage renal disease; N25.0 Renal osteodystrophy; N18.6 End stage renal disease; E10.22 Type 1 diabetes mellitus with diabetic chronic kidney disease; E10.319 Type 1 diabetes mellitus with unspecified diabetic retinopathy without macular edema; E10.65 Type 1 diabetes mellitus with hyperglycemia; D63.1 Anemia in chronic kidney disease; R60.0 Localized edema; J45.909 Unspecified asthma, uncomplicated; Z79.4 Long term (current) use of insulin; Z79.899 Other long term (current) drug therapy; Z96.41 Presence of insulin pump (external) (internal)

== ENCOUNTER 2017-05-02 20:46 | Emergency (ER) | payer OTHER ==
[~2017-05-02] VITALS: Ht 172.7 cm; Wt 89.8 kg
[~2017-05-02 20:46] MED LIST changes: +AMLO-114 PO; -AMPH30CA3 PO; +ATOR-26 PO; +CARV25TA2 PO; +ERGO500037 PO; +FENO54TA PO; +HYDR100T12 PO; -INSDGI SC; +INSPMPNVLG; -LISI-461 PO; -METF-384 PO; +MOME100A INH; -NVLGI/PEN SC; +ZNTT/150 PO
[2017-05-02 20:55] VITALS: TEMP 37; Ht 172.7 cm; Wt 89.8 kg
[2017-05-02 22:16] LABS: URINE APPEARANCE CLEAR (CLEAR); URINE BILIRUBIN NEG (NEG); URINE COLOR YELLOW; URINE NITRITE NEG (NEG); URINE PH 6.5 (4.5-7.5); UROBILINOGEN NEG (NEG); ZZURINE CULT IF INDIC CATH YES
[2017-05-02 22:20] LABS: MANUAL MICROSCOPIC REQUIRED? NO; REVIEW REQ? YES
[2017-05-02] MEDS ORDERED: LEVOFLOXACIN 250 MG TAB PO STA (23:32)
--- NOTE | 2017-05-02 23:37 | EMERGENCY ROOM VISIT NOTE ---
History First contact with patient: 21:19 Chief Complaint: UNABLE TO VOID Stated Complaint: NEED TO URINATE Nursing Triage Summary: Patient ambulatory to triage, slowly, states "I had a peritoneal dialysis catheter put in at [facility] today. They also repaired a small hernia. I left there at [address]. [address] Vital and he told me to come here because I have been unable to urinate since I left there. " History of Present Illness The patient is a 37 year old male who presents to the Emergency Room via private vehicle with complaints of "needy urinate". The patient states that he was set up for peritoneal dialysis today, and had the surgery performed today. He has been previously on hemodialysis. He has end-stage kidney disease. He has not urinated since 2 PM. He notes he tried while leaving the hospital at [facility], was unable to do so. He called his kidney doctor, Dr. Vital, who recommended coming to the emergency department. He notes that there is some pressure in the bladder region, but otherwise feels well. There is some soreness of the surgical site. Review of Systems A complete 10-point Review of Systems was discussed with the patient, with pertinent positives and negatives listed in the History of Present Illness. All remaining Review of Systems questions can be considered negative unless otherwise specified. Past Medical/Surgical History Medical Problems: (1) Asthma (2) Chronic kidney disease (3) Diabetes (4) ESRD (end stage renal disease) (5) HLD (hyperlipidemia) (6) HTN (hypertension) Family History Diabetes mellitus Social History Smoking Status: Never Smoker Marital Status: Housing Status: lives with family Occupation Status: unemployed Current/Historical Medications Scheduled Amlodipine (Norvasc), 10 MG PO DAILY Atorvastatin (Lipitor), 80 MG PO DAILY Carvedilol (Coreg), 25 MG PO BID Ergocalciferol (Vitamin D 16964 Unit), 50,000 INTER.UNIT PO WK Fenofibrate (Tricor), 54 MG PO DAILY Hydralazine Hcl (Apresoline), 100 MG PO BID Insulin Aspart (novoLOG INSULIN PUMP ), 1 EA N/A UD Levofloxacin (Levaquin), 250 MG PO DIRECTED Mometasone Furoate-Formoterol (Dulera 100/5 Mcg), 2 PUFFS INH BID Ranitidine (Zantac), 150 MG PO DAILY Physical Exam Vital Signs Date Time Temp Pulse Resp B/P (MAP) Pulse Ox O2 Delivery O2 Flow Rate FiO2 05/03/17 00:12 105 18 161/111 97 05/02/17 22:43 104 18 194/106 96 05/02/17 20:55 37.0 97 18 178/98 98 Room Air Physical Exam VITAL SIGNS - Vital signs and nursing notes were reviewed. Stable. GENERAL -37-year-old male appearing his stated age who is in no acute distress. Communicates well with provider and answers questions appropriately. SKIN - Without rashes. No petechial rashes. The incisions where the peritoneal dialysis to set up his in good condition. HEAD - NC/AT. ABDOMEN - Abdominal contour normal without pulsations or visible masses. No suprapubic tenderness. Medical Decision & Procedures Laboratory Results Test 05/02/17 21:50 Urine Color YELLOW Urine Appearance CLEAR (CLEAR) Urine pH 6.5 (4.5-7.5) Urine Specific [place] 1.020 (1.000-1.030) Urine Protein 4+ (NEG) Urine Glucose (UA) 2+ (NEG) Urine Ketones NEG (NEG) Urine Occult Blood TRACE (NEG) Urine Nitrite NEG (NEG) Urine Bilirubin NEG (NEG) Urine Urobilinogen NEG (NEG) Urine Leukocyte Esterase NEG (NEG) Urine WBC (Auto) 10-30 /hpf (0-5) Urine RBC (Auto) 5-10 /hpf (0-4) Urine Hyaline Casts (Auto) 1-5 /lpf (0-5) Urine Epithelial Cells (Auto) 10-20 /lpf (0-5) Urine Bacteria (Auto) 2+ (NEG) Urine Renal Epithelial Cells /lpf (0-5) Medications Administered Medications (Trade) Dose Ordered Sig/Radha Route Start Time Stop Time Status Last Admin Dose Admin Levofloxacin (Levaquin Tab) 500 mg NOW STAT PO 05/02/17 23:32 05/02/17 23:34 DC 05/02/17 23:45 500 MG Medical Decision Patient was seen and evaluated as above. He presents to us today with inability to void following a procedure which he had anesthesia for. Bladder scan found 431 mL's. Decision was made to insert Tsang catheter. This drained a clear/yellowish urine. No blood noted to exam. I do suspect urinary retention secondary to the anesthesia. This was also analyzed and culture. It was identified that he likely has a UTI potentially and given his risk factors, I will treat this. I did consult our pharmacist, to help with dosing. He'll be given 500 mg of Levaquin now, and 250 mg every other day. I do believe this is reasonable. He is supposed to have hemodialysis tomorrow, but notes that he may skip this as he has a court hearing for his child custody. The next time he would have dialysis is Saturday. Dosage is appropriate at this time. His last creatinine was above 5. He appears stable for outpatient management, and the decision was made to remove the Tsang catheter as the patient at this time may be able to void on his own. The benefits versus risk of leaving this in was discussed. He is to return tomorrow if he is unable to void for replacement of the Tsang for the weekend. He is to follow with the appropriate outpatient doctors. He was educated upon management, educated upon worrisome symptoms which to return, had questions answered prior to discharge, and was discharged home in good condition. Case was discussed with the attending physician. In evaluation treatment this patient following differential diagnoses were entertained: UTI, urinary retention secondary to procedure, among others. Impression Primary Impression: Voiding difficulty Departure Information Dispostion Home / Self-Care Condition GOOD Prescriptions Levofloxacin (LEVAQUIN) 250 Mg Tab 250 MG PO DIRECTED, #2 TAB Take 250 mg on the evening of 05/04 and 05/06. This is one tablet every other day for appropriate kidney dosing Prov: Robert Cohn PA-C 05/02/17 Referrals Azael Keller M.D.(YESSENIA) (PCP) Mik Vaughan MD Forms WORK / SCHOOL INSTRUCTIONS, HOME CARE DOCUMENTATION FORM, IMPORTANT VISIT INFORMATION Patient Instructions My [facility] Additional Instructions You have been treated in the Emergency Department for a Urinary Tract Infection (UTI) and inability to void. I recommend following with Dr. Vital. If you are unable to follow-up please do not let this in for more than one week , please return here. You have been prescribed Levaquin to be taken every other day. This is an antibiotic. All antibiotics have the potential to cause diarrhea. Stop this medication and contact a medical provider if you were to develop any significant adverse side effects including: wheezing, shortness of breath, passing out, vomiting, or a diffuse rash. Always take antibiotics as directed and COMPLETE the ENTIRE course regardless of the improvement of your symptoms. Return to the emergency department if your symptoms worsen despite treatment course outlined above. Drink plenty of water and stay well hydrated. As with any trip to the Emergency Department, you should follow-up with your Primary Care Provider from today's visit. Please keep your scheduled appointment. Return to the emergency department if your symptoms persist despite treatment plan outlined above or if the following symptoms occur: increased fevers, chills , low back pain, nausea/vomiting, or blood in your urine. Please return with any new/concerning symptoms.
[2017-05-02] MEDS ORDERED: LEVO250T47 PO (23:47)
[2017-05-03 00:12] VITALS: BP 161/111; PULSE 105; O2SAT 97
== END 2017-05-03 00:13 | disposition home or self-care (01) ==
LOC: C.EDB 20:47 → C.EDD 05-03 00:13
DX: R33.9 Retention of urine, unspecified (principal); I12.0 Hypertensive chronic kidney disease with stage 5 chronic kidney disease or end stage renal disease; E11.22 Type 2 diabetes mellitus with diabetic chronic kidney disease; N18.6 End stage renal disease; J45.909 Unspecified asthma, uncomplicated; E78.5 Hyperlipidemia, unspecified; Z99.2 Dependence on renal dialysis; Z79.4 Long term (current) use of insulin; Z83.3 Family history of diabetes mellitus

== ENCOUNTER 2017-10-23 19:14 | Emergency (ER) | payer OTHER ==
[~2017-10-23] VITALS: Ht 172.7 cm; Wt 100.6 kg
[~2017-10-23 19:14] MED LIST changes: +RANI150T85 PO; -ZNTT/150 PO
[2017-10-23 19:38] VITALS: TEMP 36.8; Ht 172.7 cm; Wt 100.6 kg
[2017-10-23] MEDS ORDERED: LIDOCAINE/EPINEPHRINE 1% 20 ML VIAL INFIL ONE (20:00)
[2017-10-23 20:40] VITALS: BP 154/81; PULSE 90; O2SAT 97
--- NOTE | 2017-10-23 22:19 | EMERGENCY ROOM VISIT NOTE ---
History First contact with patient: 19:41 Chief Complaint: LACERATION/CUT (SUT/DERMABOND) Stated Complaint: BLEEDING ON LEFT CHEEK Nursing Triage Summary: Patient reports that he has a pimple on his left cheek, has had that area cauterized before at [facility] and decided to come to ED for bleeding today. Barbara notes that bleeding has been going on all day but has slowed down tonight. Patient has wound covered with gauze in triage. History of Present Illness The patient is a 37 year old male who presents to the Emergency Room with complaints of a persistent bleeding wound on the left cheek. The patient reports that he has had this lesion for over a month. The patient reports that he has previously gone to the [facility] urgent care center where they have attempted cauterization. He reports that it will heal and then comes back again. The patient reports that it started to bleed again today. He elected to come to the emergency department for further evaluation. The patient has not followed up with his PCP or calender tender. The patient denies any known trauma to the cheek in the past. He denies any pain. The patient is diabetic, and has a history of end-stage renal disease, on dialysis. Review of Systems 10 system review was performed and was negative except for pertinent positives and negatives as indicated in history of present illness Past Medical/Surgical History Medical Problems: (1) Asthma (2) Chronic kidney disease (3) Diabetes (4) ESRD (end stage renal disease) (5) HLD (hyperlipidemia) (6) HTN (hypertension) Family History Diabetes mellitus Social History Smoking Status: Never Smoker Alcohol Use: none Marital Status: Housing Status: lives with family Occupation Status: unemployed Current/Historical Medications Scheduled Amlodipine (Norvasc), 10 MG PO DAILY Atorvastatin (Lipitor), 80 MG PO DAILY Carvedilol (Coreg), 25 MG PO BID Ergocalciferol (Vitamin D 14919 Unit), 50,000 INTER.UNIT PO WK Fenofibrate (Tricor), 54 MG PO DAILY Hydralazine Hcl (Apresoline), 100 MG PO BID Insulin Aspart (novoLOG INSULIN PUMP ), 1 EA N/A UD Mometasone Furoate-Formoterol (Dulera 100/5 Mcg), 2 PUFFS INH BID Ranitidine (Zantac), 150 MG PO DAILY Physical Exam Vital Signs Date Time Temp Pulse Resp B/P (MAP) Pulse Ox O2 Delivery O2 Flow Rate FiO2 10/23/17 20:40 90 18 154/81 97 10/23/17 19:38 36.8 100 18 171/90 96 Room Air Physical Exam CONSTITUTIONAL: Healthy and well nourished. Patient does not appear in any acute distress. HEENT: Examination shows a small 2 mm diameter depressed lesion without any surrounding erythema or induration. The wound is slowly oozing. Patient has no other significant facial wounds. NECK: Full active range of motion without discomfort. INTEGUMENTARY: No rash or other significant dermatologic conditions noted. HEMATOLOGIC: No ecchymosis or petechiae noted. NEUROLOGIC: No focal neurologic deficits noted. Medical Decision & Procedures ED Course Patient history and physical exam were performed. Nurse's notes were reviewed. Vital signs were reviewed, showing a blood pressure 171/90. The patient is afebrile. Examination shows a small wound on the face that has minimal oozing. After the bandage was removed, it did bleed more. The patient did hold direct pressure for 15 minutes with persistent oozing. At this point, I suggested performing a localized lidocaine 1% with epinephrine injection to help stop the bleeding. The patient was in agreement. Using lidocaine 1% with epinephrine, a 1 cm wheal was administered. The patient was then observed for an additional 10 minutes without active bleeding. The patient was encouraged to continuously apply direct pressure if the bleeding returns. I did suggest that he follow-up with Dr. Gil, [facility] calender tender, for further reevaluation and management. If the patient needs a referral, he was instructed to contact his PCP, Dr. Keller, for this referral. The patient was happy with plan of care, and voiced understanding of all discharge instructions. Medical Decision [place] Drug Monitoring Program Search Results: patient reviewed within database Medication Reconcilliation Current Medication List: was personally reviewed by me Blood Pressure Screening Patient's blood pressure: Elevated blood pressure Blood pressure disposition: Did not require urgent referral Impression Primary Impression: Left facial wound Departure Information Dispostion Home / Self-Care Referrals Macie Gil MD Forms HOME CARE DOCUMENTATION FORM, IMPORTANT VISIT INFORMATION Patient Instructions My [facility] Additional Instructions Suggest calling Dr. Gil (calender tender) for further evaluation and management. Tell the office that you were seen in the emergency department for persistent bleeding of a wound on the face. If bleeding returns, apply CONTINUOUS direct pressure and ice for 45-60 minutes.
== END 2017-10-23 20:40 | disposition home or self-care (01) ==
LOC: C.EDB 19:16 → C.EDD 20:40
DX: S01.80XA Unspecified open wound of other part of head, initial encounter (principal); X58.XXXA Exposure to other specified factors, initial encounter; J45.909 Unspecified asthma, uncomplicated; N18.6 End stage renal disease; E11.22 Type 2 diabetes mellitus with diabetic chronic kidney disease; I12.0 Hypertensive chronic kidney disease with stage 5 chronic kidney disease or end stage renal disease; E78.5 Hyperlipidemia, unspecified; Z79.899 Other long term (current) drug therapy; Z79.4 Long term (current) use of insulin; Z83.3 Family history of diabetes mellitus

== ENCOUNTER → 2018-03-03 | Day surgery (SDC) | payer OTHER ==
[2018-02-21 10:29] VITALS: Ht 172.7 cm; Wt 90.9 kg
[~2018-03-03] VITALS: Ht 172.7 cm; Wt 90.9 kg
[~2018-03-03] MED LIST changes: +500ML BSSPLUS 0.5ML EPI1:1000 IRRIG ONE; +ACETAMINOPHEN 325 MG TAB PO PRN; -AMLO-114 PO; +AMLO10TA3 PO; +ATROPINE SULFATE 0.1 MG/ML 5ML SYR IV PRN; +ATROPINE SULFATE 1% OP OINT PER APPLICATION CHARGE ONE; +BSS FLUSH ONE; +CEFAZOLIN SOD 1 GM VIAL ONE; +DEXAMETHASONE SOD INJ 4 MG/ML VIAL ONE; +DEXTROSE 50% 50 ML SYR ONE; +EpHEDrine SULFATE INJ 50 MG/ML AMP IV PRN; +EpINEphrine INJ 1MG/ML AMP 1 MG/ML AMP ONE; +FENTANYL CITRATE INJ 50 MCG/1 ML 2 ML VIAL ONE; +HYALURONIDASE HUMAN 150 UNIT/ML INJ ONE; +INDOCYANINE GREEN 25 MG/10 ML ONE; +LACTATED RINGER'S 1000ML 500 ML IV SCH; +LIDOCAINE HCL 2% 2 ML VIAL (20MG/ML) ONE; +LISI-461 PO; +MIDAZOLAM HCL 1 MG/ML 2ML VIAL ONE; +NEOMYCIN/POLYMYX/DEXAMETH OP OINT PER APP CHARGE ONE; +NURSING VERBAL MED ORDER ONE; +OCUCOAT 1 ML SOLN IO ONE; +POVIDONE-IODINE OP SOLN (SURGERY CNTR CHARGING ONLY) ONE; +PROPARACAINE 0.5% OP SOLN PER DROP CHARGE OPL SCH; +PROPOFOL IV EMULSION 10 MG/ML 20 ML VIAL ONE; +TIMOLOL MALEATE 0.5% OP SOLN PER DROP CHARGE ONE; +TRIAMCINOLONE ACETONIDE OPHTH 40 MG/ML VIAL STERILE ONE; +[UNRECOGNIZED DRUG - CODE]
[2018-03-03] MEDS: PHENYLEPHRINE HCL 2.5% OP SOLN PER DROP CHARGE OPL SCH ×2 (09:59→10:04)
[2018-03-03] MEDS: TROPICAMIDE 1% OP SOLN PER DROP CHARGE OPL SCH ×2 (10:00→10:05)
--- NOTE | 2018-03-03 10:14 | History & Physical Bridge - SC ---
H&P Re-Evaluation Bridge Note: Pt has diabetic retinopathy left eye and is having vitrectomy left eye. I have examined the patient, reviewed the History & Physical and in the interval since the performance of the History & Physical I have noted the following changes of clinical significance: No changes noted
[2018-03-03 10:19] LABS: CALCIUM 8.1 mg/dl (8.5-10.1); CREATININE 12.1 mg/dl (0.60-1.40); POTASSIUM 5.3 mmol/L (3.5-5.1)
--- NOTE | 2018-03-03 11:13 | History and Physical: Surg Cnt ---
History & Physical Date Mar 03, 2018. Chief Complaint decreased vision, left eye History of Present Illness The patient is a 38 year old male with complaints of Past Medical/Surgical History Medical Problems: (1) Asthma (2) Chronic kidney disease (3) Diabetes (4) ESRD (end stage renal disease) (5) HLD (hyperlipidemia) (6) HTN (hypertension) Additional History Hepatic Disease: Yes Endocrine Disorder: Yes Kidney Disease: Yes Hypertension: Yes Heart Disease: No Bleeding Tendencies: No Infectious Diseases: No Allergies Coded Allergies: No Known Allergies (Verified , 03/03/18) Home Medications Scheduled Amlodipine (Norvasc), 10 MG PO QAM Atorvastatin (Lipitor), 40 MG PO QAM Carvedilol (Coreg), 25 MG PO BID Ergocalciferol (Vitamin D 07309 Unit), 50,000 INTER.UNIT PO WK Fenofibrate (Tricor), 54 MG PO QAM Hydralazine Hcl (Apresoline), 100 MG PO TID Insulin Aspart (novoLOG INSULIN PUMP ), 1 EA N/A UD Mometasone Furoate-Formoterol (Dulera 100/5 Mcg), 2 PUFFS INH BID Scheduled PRN Ranitidine (Zantac), 150 MG PO DAILY PRN for GI Upset Miscellaneous Medications Furosemide (Furosemide) Lisinopril (Zestril), 10 MG PO Physical Examination Skin: warm/dry Eyes: normal inspection Respiratory/Chest: lungs clear Cardiovascular: regular rate, rhythm Diagnosis diabetic retinopathy, left eye Plan of Treatment vitrectomy left eye
[2018-03-03] MEDS: BUPIVACAINE HCL 0.75% 10 ML AMP/VIAL ONE (11:27)
--- NOTE | 2018-03-03 12:32 | [facility] Post Operative Brief Note ---
Immediate Operative Summary Operative Date Mar 03, 2018. Pre-Operative Diagnosis Left Eye Diabetic Retinopathy Post-Operative Diagnosis Same Procedure(s) Performed vitrectomy Surgeon Dr. Escamilla Pr Specialist Surgeon(s) None Estimated Blood Loss 0 mL Findings Consistent with Post-Op Diagnosis Specimens None Anesthesia Type MAC
--- NOTE | 2018-03-03 12:33 | Discharge Instructions-SurgCtr ---
Discharge Instructions Date of Service Mar 03, 2018. Visit Reason for Visit: Left Eye Diabetic Retinopathy Discharge Discharge Diagnosis / Problem: same Discharge Goals Goal(s): Prevent Disease Progression Activity Recommendations Activity Limitations: per Instructions/Follow-up section Anesthesia . Post Anesthesia Instructions: If you have had General Anesthesia or IV Sedation: * Do not drive today. * Resume driving when surgeon permits. * Do not make important decisions or sign legal documents today. * Call surgeon for: 1. Temperature elevations greater than 101 degrees F. 2. Uncontrollable pain. 3. Excessive bleeding. 4. Persistent nausea and vomiting. 5. Medication intolerance (nausea, vomiting or rash). * For nausea and vomiting use only clear liquids such as: tea, soda, bouillon until nausea subsides, then gradually increase diet as tolerated. * If you have any concerns or questions, call your surgeon's office. If physician is unavailable and it is an emergency, call 911 or go to the nearest emergency room. . Instructions / Follow-Up Instructions / Follow-Up * May take Tylenol if needed for discomfort. * Do NOT remove eye shield. * NO straining, heavy lifting (>15 pounds) or bending below waist. * Avoid getting water or soap directly into operative eye. * Do NOT rub eye. If you experience increasing eye pain not relieved by medication, please contact us immediately at [phone]. If you are unable to reach someone at the above number, call [phone] and ask to speak with the EYE DOCTOR DESIGNER/WRITER. Inform them that you are a Dr. Escamilla patient who had recent surgery. Diet Recommendations Home Diet: resume previous diet Procedures Procedures Performed: vitrectomy Pending Studies Studies pending at discharge: no Medical Emergencies . Who to Call and When: Medical Emergencies: If at any time you feel your situation is an emergency, please call 911 immediately. . Non-Emergent Contact Non-Emergency issues call your: Matcher Offbearer . . "Provider Documentation" section prepared by Steve Escamilla. .
[2018-03-03 12:38] VITALS: BP 150/85; PULSE 89; TEMP 36.5; O2SAT 95
--- NOTE | 2018-03-03 12:38 | [facility] Operative Report ---
Operative Report Date of Service Mar 03, 2018. Operative Report PREOPERATIVE DIAGNOSIS: Diabetic retinopathy with vitreous hemorrhage, tractional retinal detachment , left eye. POSTOPERATIVE DIAGNOSIS: same. PROCEDURE: 1. Pars plana vitrectomy, 23 gauge. 2. Membrane peeling and segmentation. 3. Endolaser. All to the left eye. CPT CODE: 78186 SURGEON: Steve Escamilla D.O. COMPLICATIONS: None. ESTIMATED BLOOD LOSS: None. SPECIMENS: None. ANESTHESIA: Retrobulbar block and MAC INDICATIONS FOR PROCEDURE: Surgery is indicated to decrease risk of vision loss and potentially improve vision. CONSENT: The risks, benefits and alternatives were discussed with the patient including but not limited to decreased visual acuity, failure to achieve desired results, loss of the eye, infection, pain, glaucoma, lens changes, retinal tears, retinal detachment, the need for more procedures, drooping of the eyelid, blindness, and double vision. The patient is aware of risks and consents to the surgery. Consent is signed and on the chart. OPERATION AND FINDINGS: The patient was brought to the operating room where the patient was identified by name, date, and medical record number. The surgical site was confirmed with the informed written consent. The patient was sedated by the anesthesiology team after which a 50:50 mixture of 2% lidocaine and 0.75% bupivacaine with hyaluronidase was administered in a standard retrobulbar fashion. A total of 4 ml was administered without difficulty. The patient was then prepped and draped in the usual sterile manner for retinal surgery. A wire lid speculum was placed and an Juan Carlos 23-gauge trocar cannula system was employed. The inferior temporal trocar cannula was first placed in an angled fashion 3.75mm posterior to the surgical limbus and the infusion cannula was inserted into this cannula after which the intravitreal position was verified prior to turning the infusion on. Two more trocar cannulas were then inserted in an angled fashion, one in the superior temporal, and one in the superior nasal quadrant both 3.75mm posterior to the surgical limbus. A light pipe and vitrector were then introduced into the eye and the BIOM wide angle viewing system was brought into place. Posterior inspection revealed partially regressed proliferative diabetic retinopathy with neovascularization tags superior and inferior to the temporal arcades. There was also noted previous laser treatment. There was a tractional retinal detachment along the superior arcade and two areas of traction along the inferior arcade. Standard core vitrectomy was performed and the vitreous was insured to be totally detached from the posterior pole with the aid of the vitrector. The areas of traction were segmented with the vitrector and scissors and cautery was used to treat any bleeding. Endolaser was used to perform fill- in mcnulty retinal photocoagulation. At this point scleral depression was performed for 360 degrees and no retinal tears or detachments were noted. The trocar cannulas were then removed and 8-0 vicryl suture was placed at all of the sclerotomy sites. The intraocular pressure was found to be within normal limits by palpation and subconjunctival injections of Kefzol and dexamethasone were administered inferiorly and superiorly. The wire lid speculum was removed. Maxitrol and timolol were applied to the surface of the eye. A light patch and shield were taped over the surface of the eye and the patient left the Operating Room in stable condition having tolerated the procedure well. DISPOSITION: The patient has an appointment the following morning in the Ophthalmology Clinic. The patient is to call immediately if there are any problems overnight. I attest to the content of the Intraoperative Record and any orders documented therein. Any exceptions are noted below.
--- NOTE | 2018-03-03 13:03 | Anesthesia Progress Nt - [facility] ---
Anesthesia Post Op Note Date & Time Mar 03, 2018 at 13:02 Vital Signs Pain Intensity: 0 Vital Signs Past 12 Hours Date Time Temp Pulse Resp B/P (MAP) Pulse Ox O2 Delivery O2 Flow Rate FiO2 03/03/18 12:38 36.5 89 20 150/85 (106) 95 Room Air 03/03/18 09:42 36.8 84 18 159/87 (111) 95 Notes Mental Status: alert / awake / arousable, participated in evaluation Nausea / Vomiting: adequately controlled Pain: adequately controlled Airway Patency, RR, SpO2: stable & adequate BP & HR: stable & adequate Hydration State: stable & adequate Anesthetic Complications: no major complications apparent Anesthetic Complications: BG was 104 in recovery. Pt restarted basal insulin rate on pump in recovery after he tolerated crackers and something to drink.
== END | disposition home or self-care (01) ==
LOC: X.SURG 09:12
PROVIDERS: ATTEND Ophthalmology
DX: E11.319 Type 2 diabetes mellitus with unspecified diabetic retinopathy without macular edema (principal); H43.12 Vitreous hemorrhage, left eye; H33.42 Traction detachment of retina, left eye; I10 Essential (primary) hypertension; E66.9 Obesity, unspecified; Z68.30 Body mass index [BMI] 30.0-30.9, adult; Z79.4 Long term (current) use of insulin; N18.6 End stage renal disease; Z79.899 Other long term (current) drug therapy

== ENCOUNTER 2018-03-11 12:21 | Emergency (ER) | payer OTHER ==
[~2018-03-11] VITALS: Ht 172.7 cm; Wt 90.6 kg
[~2018-03-11 12:21] MED LIST changes: -500ML BSSPLUS 0.5ML EPI1:1000 IRRIG ONE; -ACETAMINOPHEN 325 MG TAB PO PRN; -ATROPINE SULFATE 0.1 MG/ML 5ML SYR IV PRN; -ATROPINE SULFATE 1% OP OINT PER APPLICATION CHARGE ONE; -BSS FLUSH ONE; -CEFAZOLIN SOD 1 GM VIAL ONE; -DEXAMETHASONE SOD INJ 4 MG/ML VIAL ONE; -DEXTROSE 50% 50 ML SYR ONE; -EpHEDrine SULFATE INJ 50 MG/ML AMP IV PRN; -EpINEphrine INJ 1MG/ML AMP 1 MG/ML AMP ONE; -FENTANYL CITRATE INJ 50 MCG/1 ML 2 ML VIAL ONE; -HYALURONIDASE HUMAN 150 UNIT/ML INJ ONE; -INDOCYANINE GREEN 25 MG/10 ML ONE; -LACTATED RINGER'S 1000ML 500 ML IV SCH; -LIDOCAINE HCL 2% 2 ML VIAL (20MG/ML) ONE; -MIDAZOLAM HCL 1 MG/ML 2ML VIAL ONE; -NEOMYCIN/POLYMYX/DEXAMETH OP OINT PER APP CHARGE ONE; -NURSING VERBAL MED ORDER ONE; -OCUCOAT 1 ML SOLN IO ONE; -POVIDONE-IODINE OP SOLN (SURGERY CNTR CHARGING ONLY) ONE; -PROPARACAINE 0.5% OP SOLN PER DROP CHARGE OPL SCH; -PROPOFOL IV EMULSION 10 MG/ML 20 ML VIAL ONE; -TIMOLOL MALEATE 0.5% OP SOLN PER DROP CHARGE ONE; -TRIAMCINOLONE ACETONIDE OPHTH 40 MG/ML VIAL STERILE ONE
[2018-03-11 12:24] VITALS: TEMP 36.9; Ht 172.7 cm; Wt 90.6 kg
[2018-03-11] MEDS ORDERED: CALCIUM GLUCONATE 10% 10 ML VIAL IV STA (12:30)
--- NOTE | 2018-03-11 12:45 | EMERGENCY ROOM VISIT NOTE ---
History Report prepared by Layla: Sandy Baez Under the Supervision of: Dr. Marino Alvarado M.D. First contact with patient: 12:28 Chief Complaint: REFERRED BY DOCTOR Stated Complaint: SENT BY DIALYSIS DR History of Present Illness The patient is a 38 year old male who presents to the Emergency Room with complaints of an episode of a referral by a doctor occurring prior to arrival. The patient states that he is on Peritoneal Dialysis and was sent her by his adjunct art history instructor due to his potassium being too high. He notes that it is higher than 6. The patient states that he dialyzes 4 times a day, last doing it 30 minutes ago. He notes that he does intermittently vomit. He states that he last vomited yesterday after coughing and then dry heaving. The patient complains of nasal congestion. The patient denies fevers, abdominal pain, missing any doses of medications, palpitations, nausea, hematemesis, coffee ground emesis, and difficulty breathing. Source of History: patient Onset: prior to arrival Symptom Intensity: greater than 6 Quality: other (referral by a doctor) Timing: other (episode) Associated Symptoms: + cough, + vomiting, No fevers, No nausea, No abdominal pain Note: The patient complains of dry heaving and nasal congestion. The patient denies palpitations, hematemesis, coffee ground emesis, and difficulty breathing. Review of Systems See HPI for pertinent positives and negatives. A total of ten systems were reviewed and were otherwise negative. Past Medical & Surgical Medical Problems: (1) Asthma (2) Chronic kidney disease (3) Diabetes (4) ESRD (end stage renal disease) (5) HLD (hyperlipidemia) (6) HTN (hypertension) (7) Peritoneal dialysis catheter in place Family History Diabetes mellitus Social History Smoking Status: Never Smoker Alcohol Use: none Marital Status: Housing Status: lives with family Occupation Status: unemployed Current/Historical Medications Scheduled Amlodipine (Norvasc), 10 MG PO QAM Atorvastatin (Lipitor), 40 MG PO QAM Carvedilol (Coreg), 25 MG PO BID Ergocalciferol (Vitamin D 71081 Unit), 50,000 INTER.UNIT PO WK Fenofibrate (Tricor), 54 MG PO QAM Furosemide (Lasix), 40 MG PO TID Hydralazine Hcl (Apresoline), 100 MG PO TID Insulin Aspart (novoLOG INSULIN PUMP ), 1 EA N/A UD Lisinopril (Zestril), 10 MG PO QAM Mometasone Furoate-Formoterol (Dulera 100/5 Mcg), 2 PUFFS INH BID Scheduled PRN Ranitidine (Zantac), 150 MG PO DAILY PRN for GI Upset Allergies Coded Allergies: No Known Allergies (Verified , 03/11/18) Physical Exam Vital Signs Date Time Temp Pulse Resp B/P (MAP) Pulse Ox O2 Delivery O2 Flow Rate FiO2 03/11/18 14:05 87 16 155/94 95 03/11/18 13:44 91 18 147/83 94 Room Air 03/11/18 13:16 88 03/11/18 12:24 36.9 88 18 150/88 93 Room Air Physical Exam Physical Exam GENERAL: He is oriented to person, place, and time. He appears well-developed and well-nourished. He does not appear distressed. HENT: Exam performed. Head: Normocephalic and atraumatic. Right Ear: External ear normal. No mastoid tenderness. Left Ear: External ear normal. No mastoid tenderness. Mouth/Throat: The oropharynx is clear and moist. No trismus in the jaw. No dental abscesses or uvula swelling. No oropharyngeal exudate or tonsillar abscesses. EYES: Conjunctivae and EOM are normal. Pupils are equal, round, and reactive to light. Right eye exhibits no discharge. Left eye exhibits no discharge. No scleral icterus. NECK: Normal range of motion. Neck supple. No JVD present. No spinous process tenderness present. No carotid bruit present. No rigidity. No tracheal deviation and normal range of motion present. No Brudzinski's sign and no Kernig 's sign noted. CV: Normal rate, regular rhythm, normal heart sounds and intact distal pulses. There is no peripheral edema. Palpable radial pulses bue. PULM/CHEST: Effort normal and breath sounds normal. No respiratory distress. No stridor. He has no wheezes. He has no rales. Chest Wall: He exhibits no tenderness. ABD: The abdomen is soft. Bowel sounds are normal. He has no distension. No mass is present. There is no tenderness. There is no rebound, no guarding, no Brock's sign and no tenderness at McBurney's point. Rovsig negative. There is a peritoneal dialysis catheter in place. No surrounding erythema or discharge MUSC/SKEL: Normal range of motion. There is no peripheral edema, tenderness or deformity. LYMPH: No cervical adenopathy. NEURO: He is alert and oriented to person, place, and time. He has normal strength. No cranial nerve deficit or sensory deficit. Coordination and gait normal. GCS eye subscore is 4. GCS verbal subscore is 5. GCS motor subscore is 6. Cerebellar tests wnl. SKIN: Skin is warm and dry. He is not diaphoretic. PSYCH: He has a normal mood and affect. Behavior is normal. Judgment and thought content normal. Medical Decision & Procedures ER Provider Diagnostic Interpretation: Radiology results as stated below per my review and radiologist interpretation: CHEST ONE VIEW PORTABLE CLINICAL HISTORY: cough dyspnea COMPARISON STUDY: 02/27/2017 FINDINGS: The bones soft tissues and hemidiaphragms are normal. The cardiomediastinal silhouette is normal. The lungs are clear. The pulmonary vasculature is normal. IMPRESSION: Negative chest. The above report was generated using voice recognition software. It may contain grammatical, syntax or spelling errors. Electronically signed by: Fer Zavala M.D. 03/11/2018 12:45 PM Dictated Date/Time: 03/11/2018 12:45 PM Laboratory Results 03/11/18 12:45 Red Blood Count 3.24, Mean Corpuscular Volume 89.8, Mean Corpuscular Hemoglobin 28.4, Mean Corpuscular Hemoglobin Concent 31.6, Mean Platelet Volume 9.0, Neutrophils (%) (Auto) 66.9, Lymphocytes (%) (Auto) 18.4, Monocytes (%) (Auto) 8.2, Eosinophils (%) (Auto) 5.1, Basophils (%) (Auto) 0.7, Neutrophils # (Auto) 8.13, Lymphocytes # (Auto) 2.23, Monocytes # (Auto) 0.99, Eosinophils # (Auto) 0.62, Basophils # (Auto) 0.08 03/11/18 12:45 Test 03/11/18 12:45 03/11/18 12:53 White Blood Count 12.14 K/uL (4.8-10.8) Red Blood Count 3.24 M/uL (4.7-6.1) Hemoglobin 9.2 g/dL (14.0-18.0) Hematocrit 29.1 % (42-52) Mean Corpuscular Volume 89.8 fL (80-100) Mean Corpuscular Hemoglobin 28.4 pg (25-34) Mean Corpuscular Hemoglobin Concent 31.6 g/dl (32-36) Platelet Count 426 K/uL (130-400) Mean Platelet Volume 9.0 fL (7.4-10.4) Neutrophils (%) (Auto) 66.9 % Lymphocytes (%) (Auto) 18.4 % Monocytes (%) (Auto) 8.2 % Eosinophils (%) (Auto) 5.1 % Basophils (%) (Auto) 0.7 % Neutrophils # (Auto) 8.13 K/uL (1.4-6.5) Lymphocytes # (Auto) 2.23 K/uL (1.2-3.4) Monocytes # (Auto) 0.99 K/uL (0.11-0.59) Eosinophils # (Auto) 0.62 K/uL (0-0.5) Basophils # (Auto) 0.08 K/uL (0-0.2) RDW Standard Deviation 45.9 fL (36.4-46.3) RDW Coefficient of Variation 14.2 % (11.5-14.5) Immature Granulocyte % (Auto) 0.7 % Immature Granulocyte # (Auto) 0.09 K/uL (0.00-0.02) Nucleated RBC Absolute Count (auto) 0.07 K/uL (0-0) Nucleated Red Blood Cells % 0.6 % Est Creatinine Clear Calc Drug Dose 9.0 ml/min Estimated GFR () 5.4 Estimated GFR (Non- 4.6 BUN/Creatinine Ratio 4.3 (10-20) Calcium Level 7.8 mg/dl (8.5-10.1) Magnesium Level 2.0 mg/dl (1.8-2.4) Total Bilirubin 0.3 mg/dl (0.2-1) Direct Bilirubin < 0.1 mg/dl (0-0.2) Aspartate Amino Transf (AST/SGOT) 8 U/L (15-37) Alanine Aminotransferase (ALT/SGPT) 21 U/L (12-78) Alkaline Phosphatase 69 U/L (45-117) Total Protein 7.1 gm/dl (6.4-8.2) Albumin 2.5 gm/dl (3.4-5.0) Lipase 276 U/L (73-393) Bedside Hemoglobin 9.2 g/dl (14.0-18.0) Bedside Hematocrit 27 % (42-52) Bedside Sodium 135 mEq/L (135-144) Bedside Potassium 5.1 mEq/L (3.3-5.0) Bedside Chloride 99 mEq/L (101-112) Bedside Total CO2 24 mEq/l (24-31) Anion Gap 18.0 mmol/L (16-25) Bedside Blood Urea Nitrogen 51 mg/dl (7-18) Bedside Creatinine 11.4 mg/dl (0.6-1.3) Bedside Glucose (other) 131 mg/dl (70-99) Bedside Ionized Calcium (Rj) 1.03 mmol/l (1.12-1.32) Laboratory results reviewed by me Medications Administered Medications (Trade) Dose Ordered Sig/Radha Route Start Time Stop Time Status Last Admin Dose Admin Calcium Gluconate (Calcium Gluconate 10%) 1,000 mg NOW STAT IV 03/11/18 12:30 03/11/18 12:32 DC 03/11/18 13:03 1,000 MG ECG Per My Interpretation Indication: other (arrythmia) Rate (beats per minute): 83 Rhythm: sinus rhythm Findings: peaked T-waves (leads V1-V4), PVC, other (TX, QRS, and QT-c intervals are within normal limits) ED Course 1232: The patient was evaluated in room B7. A complete history and physical exam was performed.1230: Ordered Calcium Gluconate 1000 mg IV. 1351: I reevaluated the patient and his vital signs are stable. Labs show potassium of 5.0. He is resting comfortably. Repeat abdominal exam shows no pain on palpation of the abdomen. The patient will be discharged home and follow up with Nephrology. I discussed the patient's case with Dr. Bennett- Nephrology. She was concerned that the patient was not doing home peritoneal dialysis. I explained that he did it at home right before he came in. She said she agrees he can be discharged home and she will follow up with him.DISCHARGE - Plan of care discussed with patient and questions answered. The patient was given both verbal and printed discharge instructions. The patient verbalized understanding and ability to comply. The patient is to seek outpatient follow up as noted in the discharge instructions. The patient verbalized understanding and ability to comply. The patient is discharged in stable condition. The patient was instructed to return for worsening symptoms. Medical Decision vital signs are stable. Labs show potassium of 5.0. He is resting comfortably. Repeat abdominal exam shows no pain on palpation of the abdomen. The patient will be discharged home and follow up with Nephrology. I discussed the patient's case with Dr. Rowdy Boothe. She was concerned that the patient was not doing home peritoneal dialysis. I explained that he did it at home right before he came in. She said she agrees he can be discharged home and she will follow up with him.DISCHARGE - Plan of care discussed with patient and questions answered. The patient was given both verbal and printed discharge instructions. The patient verbalized understanding and ability to comply. The patient is to seek outpatient follow up as noted in the discharge instructions. The patient verbalized understanding and ability to comply. The patient is discharged in stable condition. The patient was instructed to return for worsening symptoms. Medication Reconcilliation Current Medication List: was personally reviewed by me Blood Pressure Screening Patient's blood pressure: Elevated blood pressure Blood pressure disposition: Elevated BP felt to be situational Consults Time Called: 1342 Consulting Physician: Dr. Rowdy Boothe Returned Call: [phone] I discussed the patient's case with Dr. Rowdy Boothe. She was concerned that the patient was not doing home peritoneal dialysis. I explained that he did it at home right before he came in. She said she agrees he can be discharged home and she will follow up with him. Impression Primary Impression: ESRD (end stage renal disease) Scribe Attestation The scribe's documentation has been prepared under my direction and personally reviewed by me in its entirety. I confirm that the note above accurately reflects all work, treatment, procedures, and medical decision making performed by me. The chart was completed utilizing [employer] voice recognition software. Grammatical errors, random word insertions, pronoun errors, and incomplete sentences are an occasional consequence of this system due to software limitations, ambient noise, and hardware issues. Any formal questions or concerns about the content, text, or information contained within the body of this dictation should be directly addressed to the physician for clarification. Departure Information Dispostion Home / Self-Care Referrals Azael Keller M.D.(YESSENIA) (PCP) Forms HOME CARE DOCUMENTATION FORM, IMPORTANT VISIT INFORMATION, WORK / SCHOOL INSTRUCTIONS Patient Instructions My [facility]
[2018-03-11 13:07] LABS: BASO % 0.7 %; BASO ABS # 0.08 K/uL (0-0.2); EOS % 5.1 %; EOS ABS # 0.62 K/uL (0-0.5); HEMATOCRIT 29.1 % (42-52); HEMOGLOBIN 9.2 g/dL (14.0-18.0); IG# 0.09 K/uL (0.00-0.02); LYMPH % 18.4 %; LYMPH ABS # 2.23 K/uL (1.2-3.4); MEAN CELL VOLUME 89.8 fL (80-100); MEAN CORPUSCULAR HEMOGLOBIN 28.4 pg (25-34); MEAN CORPUSCULAR HGB CONC 31.6 g/dl (32-36); MONO % 8.2 %; MONO ABS # 0.99 K/uL (0.11-0.59); NEUT % 66.9 %; NEUT ABS # 8.13 K/uL (1.4-6.5); NUCLEATED RED BLOOD CELL ABS 0.07 K/uL (0-0); PLATELET COUNT 426 K/uL (130-400); RED CELL DISTRIBUTION WIDTH CV 14.2 % (11.5-14.5); RED CELL DISTRIBUTION WIDTH SD 45.9 fL (36.4-46.3); WHITE BLOOD COUNT 12.14 K/uL (4.8-10.8)
[2018-03-11 13:07] LABS: ISTAT CREATININE 11.4 mg/dl (0.6-1.3); ISTAT IONIZED CALCIUM 1.03 mmol/l (1.12-1.32); ISTAT POTASSIUM 5.1 mEq/L (3.3-5.0)
[2018-03-11] MEDS ORDERED: FRS/40 PO (13:23)
[2018-03-11 13:41] LABS: ALBUMIN 2.5 gm/dl (3.4-5.0); ALKALINE PHOSPHATASE 69 U/L (45-117); ALT/SGPT 21 U/L (12-78); AST/SGOT 8 U/L (15-37); BLOOD UREA NITROGEN 52 mg/dl (7-18); CALCIUM 7.8 mg/dl (8.5-10.1); CARBON DIOXIDE 21 mmol/L (21-32); GLUCOSE 131 mg/dl (70-99); LIPASE 276 U/L (73-393); SODIUM 134 mmol/L (136-145); TOTAL PROTEIN 7.1 gm/dl (6.4-8.2)
[2018-03-11 14:05] VITALS: BP 155/94; PULSE 87; O2SAT 95
== END 2018-03-11 14:07 | disposition home or self-care (01) ==
LOC: C.EDB 12:22
DX: N18.6 End stage renal disease (principal); Z99.2 Dependence on renal dialysis; I12.0 Hypertensive chronic kidney disease with stage 5 chronic kidney disease or end stage renal disease; E78.5 Hyperlipidemia, unspecified; E11.22 Type 2 diabetes mellitus with diabetic chronic kidney disease; Z79.4 Long term (current) use of insulin; J45.909 Unspecified asthma, uncomplicated

== ENCOUNTER 2021-07-10 14:55 | Inpatient (IN) ==
[2021-07-10 16:32] LABS: Basophils # (auto) 0.02 K/uL (0-0.2); Basophils % (auto) 0.2 %; Eosinophils # (auto) 0.11 K/uL (0-0.5); Hematocrit (blood only) 41.3 % (42-52); Hemoglobin 14.2 g/dL (14.0-18.0); Immature Granulocytes # (auto) 0.07 K/uL (0.00-0.02); Immature Granulocytes % (auto) 0.6 %; Lymphocytes # (auto) 0.36 K/uL (1.2-3.4); Lymphocytes % (auto) 3.3 %; Mean Corpuscular Hemoglobin 30.7 pg (25-34); Mean Corpuscular Hgb Conc 34.4 g/dL (32-36); Mean Corpuscular Volume 89.4 fL (80-100); Mean Platelet Volume 9.9 fL (7.4-10.4); Monocytes # (auto) 1.05 K/uL (0.11-0.59); Monocytes % (auto) 9.6 %; Neutrophils # (auto) 9.36 K/uL (1.4-6.5); Neutrophils % (auto) 85.3 %; Platelet Count 241 K/uL (130-400); RDW Coefficient of Variation 12.9 % (11.5-14.5); RDW Standard Deviation 41.9 fL (36.4-46.3); Red Blood Count 4.62 M/uL (4.7-6.1); White Blood Count 10.97 K/uL (4.8-10.8)
[2021-07-10 17:10] LABS: Alanine Aminotransferase 26 (12-78); Albumin Globulin Ratio 0.8 (0.9-2); Albumin Level 4.5 gm/dl (3.4-5.0); Alkaline Phosphatase 214 U/L (45-117); BUN Creatinine Ratio 3.9 (10-20); Bilirubin,Total 0.9 mg/dl (0.2-1); Blood Urea Nitrogen 28 mg/dl (7-18); Calcium 9.7 mg/dl (8.5-10.1); Carbon Dioxide 25 mmol/L (21-32); Chloride 92 mmol/L (98-107); Est GFR (African American) 9.8 ml/min; Est GFR (Non-African American) 8.4 ml/min; Globulin 5.9 gm/dl (2.5-4.0); Glucose 137 mg/dl (70-99); Sodium 130 mmol/L (136-145); Total Protein 10.4 gm/dl (6.4-8.2)
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
[2021-07-10] MEDS ORDERED: SODIUM CHLORIDE 0.9% 1000ML 500 ML IV ONE (18:04)
--- NOTE | 2021-07-10 18:49 | XRay Report ---
SINGLE VIEW CHEST CLINICAL HISTORY: Cough FINDINGS: An AP, portable, upright chest radiograph is compared to study dated 01/14/2020. The heart is mildly enlarged. There is pulmonary vascular congestion. There is mild chronic elevation of the righ t hemidiaphragm. Atelectasis is present at the lung bases. No large pleural effusion or pneumothorax is seen. The skeletal structures appear osteopenic. The bony thorax is grossly intact. IMPRESSION: Cardiomegaly with pulmonary vascular congestion. ACT 112: Negative or not required by law. Electronically signed by: Marcus Peters M.D. 07/10/2021 6:48 PM
[2021-07-10 19:51] LABS: Thyroid Stimulating Hormone 1.17 uIu/ml (0.300-4.500); Troponin I 0.106 ng/ml (0-0.045)
[2021-07-10] MEDS ORDERED: LORATADINE 10 MG TAB PO PRN (22:39)
[2021-07-10] MEDS ORDERED: NITROGLYCERIN SL 0.4 MG/TAB TAB SL PRN (22:39)
[2021-07-10] MEDS ORDERED: ALBUTEROL HFA 8 GM INHALER INH PRN (22:39)
[2021-07-10] MEDS ORDERED: ONDANSETRON INJ 2 MG/ML 2 ML VIAL IV PRN (22:39)
--- NOTE | 2021-07-10 22:46 | History and Physical Report ---
DATE OF ADMISSION: 07/10/2021 CHIEF COMPLAINT: Dizziness. HISTORY OF PRESENT ILLNESS: A 41-year-old male with past medical history significant for type 1 diabetes, secondary hyperparathyroidism, asthma, mild persistent sleep apnea, hypertension, history of left ventricular hypertrophy, end-stage renal disease, on dialysis, attention deficit disorder, presents with dizziness during dialysis. The patient was feeling dizzy. Denies any shortness of breath. Seems to be completed his dialysis and brought in here. In the ER, lab work was okay except troponin showing 0.1, alkaline phosphatase of 214. SARS-CoV-2 PCR came back positive. The patient is vaccinated for COVID with Moderna vaccine, second dose was on 09/11/2020. He did not receive the booster. In the ER, the patient was given fluids and currently is feeling better. His dizziness is gone, shortness of breath is gone. The patient does not have any headache, no nausea, no vomiting, no abdominal pain, no diarrhea, no fever. He has a chronic occasional cough. No shortness of breath, no chest pain, not feeling any palpitations. Appetite is okay. No earache, no runny nose, no sore throat. Resting comfortably and hemodynamically stable. ALLERGIES: No known drug allergies. PAST MEDICAL HISTORY: As mentioned above. PAST SURGICAL HISTORY: History of central line placement, injection of eye drug, laser surgery of inner eye bilaterally, appendectomy, repair of umbilical hernia. MEDICATIONS: The patient is on Tylenol 500 mg p.o. q.i.d. p.r.n., albuterol 2 puffs inhalation q.4 hours, amlodipine 10 mg p.o. daily, atorvastatin 80 mg p.o. daily, auryxia 210 mg p.o. a.c., Coreg 50 mg p.o. b.i.d., doxazosin 4 mg p.o. at bedtime, Breo Ellipta 1 inhalation daily, hydralazine 100 mg p.o. b.i.d., NovoLog sliding scale, loratadine 10 mg p.o. daily p.r.n., losartan 100 mg p.o. daily, montelukast 10 mg p.o. a.m., Viagra p.r.n., Velphoro 1000 mg p.o. a.c. FAMILY HISTORY: Significant for father has diabetes, hypertension; mother has diabetes. SOCIAL HISTORY: . No smoking, no alcohol, no drug use. REVIEW OF SYSTEMS: As per HPI. Rest of the review of systems is negative. PHYSICAL EXAMINATION: GENERAL: The patient is moderately build, not in acute distress. VITAL SIGNS: Temperature 37, pulse 111, respiratory rate 19, blood pressure 180/97, oxygen 94% on room air. HEENT: Pupils equal, round and reactive to light. Oral mucosa moist. NECK: No JVD, no neck masses. CARDIOVASCULAR: S1 and S2 heard. Regular rate and rhythm. No murmur, no gallop. RESPIRATORY: Normal AP diameter. No accessory muscle use. No wheezing, no crackles. ABDOMEN: Soft, bowel sounds present, nontender, no distention. CENTRAL NERVOUS SYSTEM: Cranial nerves II-XII grossly intact, nonfocal. EXTREMITIES: No edema, no erythema. LABORATORY DATA: WBC 10.9, hemoglobin 14.2, hematocrit 41.3, platelets 241. Sodium 130, potassium 4, chloride 92, bicarbonate 25, BUN 28, creatinine 7, serum glucose 137, calcium 9.7, total bilirubin 0.9, AST 15, ALT 26, alkaline phosphatase 214. Troponin I of 0.106. TSH is 1.17. SARS-CoV-2 PCR positive. Chest x-ray: Cardiomegaly with pulmonary vascular congestion. EKG: Sinus tachycardia at a rate of 111, possible left atrial enlargement. ASSESSMENT AND PLAN: This is a 41-year-old male who presents with dizziness during dialysis. 1. Dizziness, tachycardia: The patient is COVID positive, possibly contributing. Received fluids in the Emergency Room, feeling better. We will observe in the hospital. 2. Mild elevation of troponin: Could be demand ischemia, could be from his end-stage renal failure. We will follow serial enzymes. If any concern, we will get an echocardiogram and consult cardiology. 3. End-stage renal disease: On hemodialysis. Currently with COVID, the patient is worried his dialysis plans will be changed. We will consult nephrology in the a.m. 4. COVID-19: The patient is positive. The patient is asymptomatic currently. We will monitor. Received 2 doses of Moderna vaccine, last dose on 09/11/2020. 5. Diabetes: On insulin sliding scale. Home Tresiba. We will follow the blood sugars. 6. Hypertension: Continue his home medications of Coreg, doxazosin, amlodipine, hydralazine. We will monitor the blood pressure. 7. History of asthma: Continue home inhalers. 8. History of obstructive sleep apnea: Plan sleep study as per the [facility] notes. CPAP at bedtime if he tolerates Needs follwup. 9. Hyperlipidemia: Continue statin. 10. Deep venous thrombosis prophylaxis: Heparin subcutaneously. DISPOSITION: Monitor in the med tele. PT/OT prior to discharge. Social service to help with discharge planning. Job ID: [id number] THANH
[2021-07-10] MEDS ORDERED: CARBOHYDRATES FOR HYPOGLYCEMIA PO PRN (23:00)
[2021-07-10] MEDS ORDERED: DEXTROSE 50% 50 ML SYRINGE IV PRN (23:00)
[2021-07-10] MEDS ORDERED: GLUCOSE 40% GEL 15 GM TUBE PO PRN (23:00)
[2021-07-10] MEDS ORDERED: GLUCOSE 10 TABS/TUBE PO PRN (23:00)
[2021-07-10] MEDS ORDERED: GLUCAGON FOR INJ 1 MG VIAL IM PRN (23:00)
[2021-07-10] MEDS ORDERED: LABETALOL HCL IV 5 MG/ML 20ML IV PRN (23:41)
[2021-07-10] MEDS ORDERED: INSULIN ASPART PER UNIT SC STA (23:42)
[2021-07-10] MEDS: carvediloL 25 MG TAB PO SCH (23:51)
[2021-07-10] MEDS: hydrALAZINE TAB 50 MG TAB PO SCH (23:51)
[2021-07-10] MEDS: HEPARIN SOD 5,000 UNIT/0.5 ML VIAL SQ SCH (23:52)
[2021-07-11] MEDS: VELPHORO~ORDER AWAITING ACTION SCH ×4 (00:27→21:12)
[2021-07-11] MEDS: AURYXIA~ORDER AWAITING ACTION SCH ×4 (00:27→21:12)
[2021-07-11] MEDS: HEPARIN SOD 5,000 UNIT/0.5 ML VIAL SQ SCH ×3 (05:45→21:30)
[2021-07-11 05:53] LABS: Basophils # (auto) 0.01 K/uL (0-0.2); Basophils % (auto) 0.1 %; Eosinophils # (auto) 0.02 K/uL (0-0.5); Eosinophils % (auto) 0.3 %; Hematocrit (blood only) 35.9 % (42-52); Hemoglobin 12.1 g/dL (14.0-18.0); Immature Granulocytes # (auto) 0.04 K/uL (0.00-0.02); Immature Granulocytes % (auto) 0.5 %; Lymphocytes # (auto) 1.08 K/uL (1.2-3.4); Lymphocytes % (auto) 14.4 %; Mean Corpuscular Hemoglobin 30.4 pg (25-34); Mean Corpuscular Hgb Conc 33.7 g/dL (32-36); Mean Corpuscular Volume 90.2 fL (80-100); Mean Platelet Volume 10.1 fL (7.4-10.4); Monocytes # (auto) 1.05 K/uL (0.11-0.59); Neutrophils # (auto) 5.28 K/uL (1.4-6.5); Neutrophils % (auto) 70.7 %; Platelet Count 205 K/uL (130-400); RDW Standard Deviation 42.6 fL (36.4-46.3); Red Blood Count 3.98 M/uL (4.7-6.1); White Blood Count 7.48 K/uL (4.8-10.8)
[2021-07-11 06:38] LABS: BUN Creatinine Ratio 4.4 (10-20); Calcium 8.8 mg/dl (8.5-10.1); Creatinine Clr Calc Pharmacy 9.5 ml/min; Est GFR (African American) 6.8 ml/min; Est GFR (Non-African American) 5.9 ml/min; Magnesium 2.4 mg/dl (1.8-2.4)
[2021-07-11 07:46] LABS: Estimated Average Glucose 272 mg/dl; Hemoglobin A1C 11.1 % (4.5-5.6)
[2021-07-11] MEDS: carvediloL 25 MG TAB PO SCH ×2 (08:47→21:31)
[2021-07-11] MEDS: hydrALAZINE TAB 50 MG TAB PO SCH ×2 (08:47→21:30)
[2021-07-11] MEDS: FLUTICASONE/VILANTEROL 100/25MCG 14 PUFFS/INHALER INH SCH (08:49)
[2021-07-11] MEDS: MONTELUKAST SODIUM 10 MG TABLET PO SCH (08:50)
[2021-07-11] MEDS: INSULIN GLARGINE SOLOSTAR 100 UNITS/ML 3 ML PEN SQ SCH (08:52)
[2021-07-11] MEDS: INSULIN ASPART PER UNIT SC SCH ×4 (09:02→20:27)
[2021-07-11 09:18] LABS: Troponin I 0.238 ng/ml (0-0.045)
[2021-07-11] MEDS ORDERED: SODIUM CHLORIDE 0.9% 1000ML 1,000 ML IV PRN (11:47)
[2021-07-11] MEDS ORDERED: HEPARIN SOD (PORCINE) 1000 UNIT/ML IV ONE (12:00)
--- NOTE | 2021-07-11 13:18 | Consultation Report ---
NEPHROLOGY CONSULTATION NOTE DATE OF SERVICE: 07/11/2021 REASON FOR CONSULT: Dialysis patient admitted in the hospital because of dizziness and syncope. HISTORY OF PRESENT ILLNESS: The patient is a 41-year-old male with type 1 diabetes with ESRD, on chr onic hemodialysis Saturday, Saturday, Saturday at the [facility]. He apparently had an e pisode of lightheadedness/dizziness during dialysis and he apparently had a syncopal event and he yarbrough s not remember the full details of what happened. In the Emergency Department, lab work was acceptabl e except slightly elevated troponin and COVID test came back positive. The patient is vaccinated for COVID, but not boosted. In the Emergency Department, the patient was given slight amount of fluids, but he is not getting any now. His blood pressure was never low, in fact it is high at this point. He has slight shortness of breath and some cough. He was noted to have significant fluid retention y esterday in dialysis and he does have some pulmonary congestion on the x-ray. ALLERGIES: No known drug allergies. PAST MEDICAL AND SURGICAL HISTORY: Includes type 1 diabetes, secondary hyperparathyroidism, asthma, mild persistent sleep apnea, but not on CPAP, hypertension, history of left ventricular hypertrophy, end-stage renal disease, on dialysis Saturday, Saturday, Saturday. Attention deficit disorder, central line placement, laser surgeries of the eyes, appendicectomy, umbilical hernia surgery, AV fistula. MEDICATIONS: Medications at home were reviewed in detail and are as per the reconciliation list. FAMILY HISTORY: Significant for father with diabetes, hypertension. Mother also has diabetes. SOCIAL HISTORY: . No smoking, no alcohol, no drugs. He currently lives with his son who is a 9-year-old. REVIEW OF SYSTEMS: As detailed in HPI; unless stated otherwise, 12 systems reviewed and negative. P ositive review of systems included dizziness/lightheadedness with syncopal event during dialysis. Th ere was also some increased cough and shortness of breath, but denied having any fever or chills. PHYSICAL EXAMINATION: GENERAL: Moderately built male who is not in any overt respiratory distress. She is awake, alert, o riented x3, able to give a detailed account of his medical problem. VITAL SIGNS: Blood pressure 176/107, temperature 37.3 degrees Celsius, 95% on room air. HEENT: Mucous membrane is moist. NECK: Supple. CHEST: Bilaterally clear to auscultation. CARDIOVASCULAR: S1 and S2, regular. ABDOMEN: Soft, nontender. EXTREMITIES: Show no edema. AV fistula is working fine with good bruit and thrill. SKIN: No rashes noted. NEUROLOGIC: He is awake, alert, oriented, following all commands, moving all 4 extremities. Normal speech. LABORATORY TEST: Reviewed. BUN 43, creatinine 9.78, sodium 132, potassium 4.0. Hemoglobin A1c unco ntrolled at 11.1. Troponin elevated at 0.229. Chest x-ray shows some pulmonary congestion. ASSESSMENT AND PLAN: A 41-year-old male who presented to the hospital with episode of lightheadednes s/dizziness/confusion during dialysis. He has type 1 diabetes with end-stage renal disease, on hemod ialysis Saturday, Saturday, Saturday for which I have been consulted. 1. End-stage renal disease. His normal days are Saturday, Saturday, Saturday, but because of schedulin g issue with the nursing staff, he will be getting dialysis later today this afternoon and then next dialysis will be on . We will do him for 3 hours 30 minutes and take about 4 kilo of fluid off. He does appear to have some pulmonary congestion with fluid retention. At this point, it is no t clear why he felt lightheaded/dizzy with some confusion episode during dialysis. His electrolytes seem reasonable. 2. COVID-19. He was found to be positive, but it is not clear whether that is contributing to any o f his symptoms at this time. Defer to primary team. Job ID: [id number]
[2021-07-11] MEDS: HEPARIN SOD (PORCINE) 1000 UNIT/ML IV SCH (15:19)
--- NOTE | 2021-07-11 17:44 | Electrocardiogram Report ---
Test Reason : Blood Pressure : / mmHG Vent. Rate : 111 BPM Atrial Rate : 111 BPM P-R Int : 146 ms QRS Dur : 080 ms QT Int : 360 ms P-R-T Axes : 053 060 071 degrees QTc Int : 489 ms Sinus tachycardia Possible Left atrial enlargement Borderline ECG When compared with ECG of 18-JUL-2019 16:38, T wave amplitude has increased in Anterior leads Confirmed by Steve Newsome ([id number]) on 07/11/2021 5:43:44 PM Referred By: REFERRED SELF Confirmed By:Farhad Newsome
--- NOTE | 2021-07-11 17:45 | Electrocardiogram Report ---
Test Reason : Blood Pressure : / mmHG Vent. Rate : 109 BPM Atrial Rate : 109 BPM P-R Int : 144 ms QRS Dur : 080 ms QT Int : 368 ms P-R-T Axes : 030 018 073 degrees QTc Int : 495 ms Sinus tachycardia Possible Left atrial enlargement Left ventricular hypertrophy Nonspecific ST and T wave abnormality Abnormal ECG When compared with ECG of 10-JUL-2021 18:32, (unconfirmed) No significant change was found Confirmed by Steve Newsome ([id number]) on 07/11/2021 5:45:48 PM Referred By: REFERRED SELF Confirmed By:Farhad Newsome
[2021-07-11] MEDS: ATORVASTATIN 40 MG TAB PO SCH (20:27)
--- NOTE | 2021-07-11 21:03 | Hospitalist Progress Note ---
Date of Service July 11, 2021 Assessment & Plan (1) COVID-19: (2) ESRD (end stage renal disease) on dialysis: Plan: ASSESSMENT AND PLAN: This is a 41-year-old male who presents with dizziness during dialysis. 1. Dizziness, tachycardia Likely secondary to COVID-19 infection T-max 38.3 Saturating well on room air Chest x-ray: No signs of pneumonia Decadron and remdesivir not indicated at this point Patient is a candidate for monoclonal antibodies Can get monoclonal antibodies from [facility] if already available tomorrow or -please call Pavan Subramanian extension [phone] if not, Discussed with [facility] outpatient PCP, patient referred to [facility]-phone #[phone], they have accepted the patient If stable, patient can be discharged tomorrow, get medical antibiotics either tomorrow or , then hemodialysis on Saturday (check with patient case manager regarding which facility patient is going to have hemodialysis due to his positive Covid status) 2. Mild elevation of troponin: Could be demand ischemia, could be from his end-stage renal failure. Troponin 0.1, 0.2, 0.2 EKG showed nonspecific anterolateral leads changes Denies cardiac symptoms, chest pain Check echocardiogram 3. End-stage renal disease: On hemodialysis. Discussed with trolley collector Hemodialysis performed today Next one would be on Saturday discussed with patient case manager Sona today, she will check with Konrad regarding facility patient is going to have hemodialysis due to his positive Covid status 4. COVID-19: The patient is positive. The patient is asymptomatic currently. Received 2 doses of Moderna vaccine, last dose on 09/11/2020. 5. Diabetes: On insulin sliding scale. Home Tresiba. 6. Hypertension: Continue his home medications of Coreg, doxazosin, amlodipine, hydralazine. 7. History of asthma: Continue home inhalers. 8. History of obstructive sleep apnea: Plan sleep study as per the Epic notes. CPAP at bedtime if he tolerates Needs follwup. 9. Hyperlipidemia: Continue statin. 10. Deep venous thrombosis prophylaxis: Heparin subcutaneously. plan of care discussed with patient in detail and at length all questions answered he is understanding, agreeable, comfortable with the plan of care Admission and Anticipated Discharge Date Admission Date: July 10, 2021 Subjective Follow-up for COVID-19 infection, dizziness, end-stage renal disease, etc. Seen resting in bed, dialysis in progress Comfortable, not in distress, on room air Reports he has dry cough, nasal congestion Otherwise does not have shortness of breath, loss of taste or smell, diarrhea No other symptoms Review of Systems Review of Systems: all noted and negative except for above Physical Exam Physical Exam: General- oriented x 3, not in distress, speaks in sentences with no effort or accessory muscle use Head- atraumatic Eyes- PERRL, EOMI, anicteric ENT- oropharynx clear Neck- supple, no JVD, no adenopathy, no thyromegaly; carotids +2/2, no bruits appreciated Lungs- clear to auscultation bilaterally, no rales/wheezes Heart- normal rate, regular rhythm; no murmur, no gallop, no rub appreciated Abdomen- normal bowel sounds, nondistended, soft, nontender, no masses or hepatosplenomegaly Extremities- no pretibial edema, no calf tenderness; peripheral pulses intact Neuro- alert, oriented x 3; CN 2-12 grossly intact; motor 5/5 bilaterally;sensation 100% on all extremities; no other gross focal neurologic deficits Skin- warm & dry Results & Data Results & Data ([facility]) Vital Signs (Past 12 Hours) Vital Signs Temp Pulse Pulse Resp BP BP Pulse Ox 07/11/21 19:08 37.2 C 107 H 22 106/70 97 07/11/21 18:23 36.9 C 86 148/92 H 07/11/21 18:20 86 153/93 H 07/11/21 18:00 86 130/84 07/11/21 17:40 86 133/93 07/11/21 17:24 90 07/11/21 17:20 86 144/85 H 07/11/21 17:00 86 148/91 H 07/11/21 16:40 86 158/105 H 07/11/21 16:20 86 179/82 H 07/11/21 16:00 86 160/102 H 07/11/21 15:40 86 163/97 H 07/11/21 15:20 86 162/99 H 07/11/21 15:00 86 169/101 H 07/11/21 14:50 86 159/93 H 07/11/21 14:45 36.9 C 86 07/11/21 11:40 37.3 C 86 18 176/107 H 95 all noted and reviewed including below
[2021-07-11] MEDS: ACETAMINOPHEN 325 MG TAB PO PRN (21:28)
[2021-07-11] MEDS: DOXAZosin MESYLATE 4 MG TAB PO SCH (21:30)
[2021-07-11] MEDS: LOSARTAN POTASSIUM 50 MG TAB PO SCH (21:30)
[2021-07-11] MEDS: amLODIPine BESYLATE 5 MG TAB PO SCH (21:31)
[2021-07-12] MEDS: ACETAMINOPHEN 325 MG TAB PO PRN ×2 (01:45→08:54)
[2021-07-12] MEDS ORDERED: INSULIN ASPART PER UNIT SC ONE (02:00)
[2021-07-12] MEDS: HEPARIN SOD 5,000 UNIT/0.5 ML VIAL SQ SCH ×3 (06:25→22:05)
[2021-07-12] MEDS: carvediloL 25 MG TAB PO SCH ×2 (08:40→22:02)
[2021-07-12] MEDS: hydrALAZINE TAB 50 MG TAB PO SCH ×2 (08:40→22:01)
[2021-07-12] MEDS: AURYXIA~ORDER AWAITING ACTION SCH ×3 (08:41→23:42)
[2021-07-12] MEDS: FLUTICASONE/VILANTEROL 100/25MCG 14 PUFFS/INHALER INH SCH (08:41)
[2021-07-12] MEDS: VELPHORO~ORDER AWAITING ACTION SCH ×3 (08:41→23:42)
[2021-07-12] MEDS: MONTELUKAST SODIUM 10 MG TABLET PO SCH (08:42)
[2021-07-12] MEDS: INSULIN ASPART PER UNIT SC SCH ×4 (08:51→22:22)
[2021-07-12] MEDS: INSULIN GLARGINE SOLOSTAR 100 UNITS/ML 3 ML PEN SQ SCH (08:52)
--- NOTE | 2021-07-12 11:17 | Electrocardiogram Report ---
Test Reason : Blood Pressure : / mmHG Vent. Rate : 106 BPM Atrial Rate : 106 BPM P-R Int : 134 ms QRS Dur : 084 ms QT Int : 372 ms P-R-T Axes : 040 051 033 degrees QTc Int : 494 ms Sinus tachycardia Possible Left atrial enlargement Nonspecific ST abnormality Abnormal ECG When compared with ECG of 10-JUL-2021 20:14, No significant change was found Confirmed by Steve Newsome ([id number]) on 07/12/2021 11:16:29 AM Referred By: REFERRED SELF Confirmed By:Farhad Newsome
[2021-07-12] MEDS ORDERED: INSULIN HUMAN REGULAR PER UNIT 8 UNITS in SYRINGE 7.92 ML IV ONE (12:40)
[2021-07-12] MEDS ORDERED: INSULIN GLARGINE SOLOSTAR 100 UNITS/ML 3 ML PEN SQ ONE (12:45)
[2021-07-12] MEDS ORDERED: PHARMACY GLYCEMIC MGMT CONSULT PRN (17:06)
[2021-07-12] MEDS: amLODIPine BESYLATE 5 MG TAB PO SCH (22:02)
[2021-07-12] MEDS: ATORVASTATIN 40 MG TAB PO SCH (22:02)
[2021-07-12] MEDS: DOXAZosin MESYLATE 4 MG TAB PO SCH (22:03)
[2021-07-12] MEDS: LOSARTAN POTASSIUM 50 MG TAB PO SCH (22:04)
--- NOTE | 2021-07-12 23:42 | Hospitalist Progress Note ---
Date of Service July 12, 2021 Assessment & Plan (1) COVID-19: (2) ESRD (end stage renal disease) on dialysis: Plan: ASSESSMENT AND PLAN: This is a 41-year-old male who presents with dizziness during dialysis. 1. Dizziness, tachycardia Likely secondary to COVID-19 infection T-max 38.3 Saturating well on room air Chest x-ray cardiomegaly with pulmonary vascular congestion. no infiltrate to suggest Pneumonia Decadron and remdesivir not indicated at this point since pt saturated well on RA Patient is a candidate for monoclonal antibodies, but unable to give it while admitting I called our cliff and Pavan Subramanian extension [phone] today to check if Monoclonal antibody infusion can be given while admitting, unfortunately he cannot get it while admitting in the hospital if not, Discussed with [facility] outpatient PCP, patient referred to [facility]-phone #[phone], they have accepted the patient Will monitor for tonight since pt had a low grade fever last night 2. Elevated of troponin Possible related to demand ischemia, could be from his end-stage renal failure. Troponin 0.1-> 0.23-> 0.22 EKG showed nonspecific anterolateral leads changes Denies any chest pain Continue Carvedilol, atorvastatin, Losartan End-stage renal disease On hemodialysis. Discussed with cook specialty Last HD was yesterday Next one would be on Saturday discussed with supportive employment case manager Sona today, she will check with Konrad regarding facility patient is going to have hemodialysis due to his positive Covid status 4. COVID-19: Patient is asymptomatic currently. Received 2 doses of Moderna vaccine, last dose on 09/11/2020. Chest x-ray cardiomegaly with pulmonary vascular congestion. no infiltrate to suggest Pneumonia Decadron and remdesivir not indicated at this point since pt saturated well on RA Patient is a candidate for monoclonal antibodies, but unable to give it while admitting 5. Diabetes: BS elevated in the 300's Pharmacy consulted for glycemia management Continue insulin sliding scale and lantus while in the hospital Continue monitor BS 6. Hypertension: Continue his home medications of Coreg, doxazosin, amlodipine, hydralazine. 7. History of asthma: Continue home inhalers. 8. History of obstructive sleep apnea: Plan sleep study as per the Epic notes. CPAP at bedtime if he tolerates Needs follwup. 9. Hyperlipidemia: Continue statin. 10. Deep venous thrombosis prophylaxis: Heparin subcutaneously. Admission and Anticipated Discharge Date Admission Date: July 10, 2021 Subjective Pt was seen and examined for follow-up for COVID-19 infection, dizziness, end- stage renal disease, etc. Lying in bed with no acute distress He said that yesterday he was feeling much better Pt said that he spiked a fever last night I called Pavan Subramanian extension [phone] today to check if Monoclonal antibody infusion can be given while admitting, unfortunately he cannot get it while admitting in the hospital Denies any chest pain, palpitation, dizziness and SOB Review of Systems 2 Review of Systems: All systems reviewed & are unremarkable except as noted in Subjective Physical Exam Physical Exam: General- No acute distress Head- atraumatic Eyes- PERRL, EOMI, ENT- oropharynx clear Neck- supple, no JVD Lungs- clear to auscultation Heart- regular rhythm; no murmur Abdomen- normal bowel sounds, soft, nontender Extremities- no calf tenderness Neuro- alert, oriented x 3; PERRL, EOMI; no facial palsy; no dysarthria Skin- warm & dry Results & Data Results & Data ([facility]) Vital Signs (Past 12 Hours) Vital Signs Temp Pulse Pulse Resp BP Pulse Ox 07/12/21 20:02 37.1 C 98 H 20 120/69 92 07/12/21 15:46 36.7 C 94 H 18 122/74 94 07/12/21 15:00 92 H 07/12/21 12:43 36.9 C 84 19 97/61 L 95
[2021-07-13] MEDS: INSULIN ASPART PER UNIT SC SCH ×5 (00:14→17:35)
[2021-07-13] MEDS: HEPARIN SOD 5,000 UNIT/0.5 ML VIAL SQ SCH ×2 (06:30→13:23)
[2021-07-13] MEDS ORDERED: SODIUM CHLORIDE 0.9% 1000ML 1,000 ML IV PRN ×2 (06:49→07:00)
[2021-07-13] MEDS: AURYXIA~ORDER AWAITING ACTION SCH ×2 (06:57→16:26)
[2021-07-13] MEDS: VELPHORO~ORDER AWAITING ACTION SCH ×2 (06:57→16:27)
[2021-07-13] MEDS: FLUTICASONE/VILANTEROL 100/25MCG 14 PUFFS/INHALER INH SCH (07:02)
[2021-07-13] MEDS: carvediloL 25 MG TAB PO SCH (07:03)
[2021-07-13] MEDS: MONTELUKAST SODIUM 10 MG TABLET PO SCH (07:03)
[2021-07-13] MEDS: hydrALAZINE TAB 50 MG TAB PO SCH (07:03)
[2021-07-13] MEDS ORDERED: INSULIN GLARGINE SOLOSTAR 100 UNITS/ML 3 ML PEN SQ SCH ×2 (09:00)
[2021-07-13] MEDS ORDERED: FLUARIX QUADRIVALENT 0.5 ML SYR IM ONE (09:45)
--- NOTE | 2021-07-13 11:22 | Pharmacy Report ---
Pharmacy Glycemic Short Note 2 - Date of Service July 13, 2021 - Glycemic Short BSG Results (Last 24 hours): 07/12/21 07/12/21 07/12/21 11:53 11:54 15:18 POC Glucose 358 H* 388 H* 317 H* 07/12/21 07/12/21 07/12/21 15:19 17:07 20:22 POC Glucose 286 H 248 H 263 H 07/13/21 07/13/21 07/13/21 00:01 04:11 07:20 POC Glucose 291 H 175 H 182 H 07/13/21 11:03 POC Glucose 187 H OUTPATIENT ANTIDIABETIC REGIMEN: * Tresiba 30 units SQ daily + novolog SS * A1 c 11.1% ASSESSMENT: * Domingo is a 41 yr old male who presented to the ED after dizziness at dialysis, tested positive for COVID * A1c indicates poor outpatient glycemic control * Novolog parameters were tightened the evening of 07/12 and appear to be working well - will continue * Significant improvement in fasting BSG with additional 10 units of Lantus yesterday. Will trial 45 units per day PLAN FOR INPATIENT GLYCEMIC CONTROL: * Basal insulin * Lantus 45 units SQ today (40 with breakfast + 5 units with lunch) * Bolus insulin * NovoLog per scale ACHS or Q6hrs while NPO * Goal Range: Low 110 mg/dL - High 140 mg/dL * Correction Factor: 15 mg/dL/unit * Nutritional / Prandial insulin per carb ratio of 1 unit per 5 grams CHO consumed PLAN FOR DISCHARGE: * tbd
[2021-07-13] MEDS ORDERED: INSULIN GLARGINE SOLOSTAR 100 UNITS/ML 3 ML PEN SQ ONE (11:30)
[2021-07-13] MEDS ORDERED: SODIUM CHLORIDE 0.65% NA SOLN 45 ML (OCEAN) PRN (12:06)
[2021-07-13 12:48] LABS: BUN Creatinine Ratio 5.3 (10-20); Calcium 9.2 mg/dl (8.5-10.1); Creatinine Clr Calc Pharmacy 13.5 ml/min; Est GFR (African American) 10.4 ml/min; Est GFR (Non-African American) 8.9 ml/min; Potassium 3.5 mmol/L (3.5-5.1)
[2021-07-13] MEDS ORDERED: guaiFENesin SUGAR FREE 100 MG/5 ML UDC PO SCH (16:00)
--- NOTE | 2021-07-15 09:25 | Discharge Summary ---
Date of Service July 15, 2021 Admission HPI Per Admitting Provider CHIEF COMPLAINT: Dizziness. HISTORY OF PRESENT ILLNESS: A 41-year-old male with past medical history significant for type 1 diabetes, secondary hyperparathyroidism, asthma, mild persistent sleep apnea, hypertension, history of left ventricular hypertrophy, end-stage renal disease, on dialysis, attention deficit disorder, presents with dizziness during dialysis. The patient was feeling dizzy. Denies any shortness of breath. Seems to be completed his dialysis and brought in here. In the ER, lab work was okay except troponin showing 0.1, alkaline phosphatase of 214. SARS-CoV-2 PCR came back positive. The patient is vaccinated for COVID with Moderna vaccine, second dose was on 09/11/2020. He did not receive the booster. In the ER, the patient was given fluids and currently is feeling better. His dizziness is gone, shortness of breath is gone. The patient does not have any headache, no nausea, no vomiting, no abdominal pain, no diarrhea, no fever. He has a chronic occasional cough. No shortness of breath, no chest pain, not feeling any palpitations. Appetite is okay. No earache, no runny nose, no sore throat. Resting comfortably and hemodynamically stable. Admission Exam Per Admitting Provider GENERAL: The patient is moderately build, not in acute distress. VITAL SIGNS: Temperature 37, pulse 111, respiratory rate 19, blood pressure 180/97, oxygen 94% on room air. HEENT: Pupils equal, round and reactive to light. Oral mucosa moist. NECK: No JVD, no neck masses. CARDIOVASCULAR: S1 and S2 heard. Regular rate and rhythm. No murmur, no gallop. RESPIRATORY: Normal AP diameter. No accessory muscle use. No wheezing, no crackles. ABDOMEN: Soft, bowel sounds present, nontender, no distention. CENTRAL NERVOUS SYSTEM: Cranial nerves II-XII grossly intact, nonfocal. EXTREMITIES: No edema, no erythema. Principal Diagnosis COVID-19: ESRD (end stage renal disease) on dialysis: Discharge Exam General- No acute distress Head- atraumatic Eyes- PERRL, EOMI, ENT- oropharynx clear Neck- supple, no JVD Lungs- clear to auscultation Heart- regular rhythm; no murmur Abdomen- normal bowel sounds, soft, nontender Extremities- no calf tenderness Neuro- alert, oriented x 3; PERRL, EOMI; no facial palsy; no dysarthria Skin- warm & dry Discharge Data Allergies Allergy/AdvReac Type Severity Reaction Status Date / Time No Known Allergies Allergy Verified 07/10/21 18:39 Consultations 07/10/21 20:06 ED Decision to Admit Stat 07/11/21 08:00 Consult Nephrology Routine Ordered Studies SINGLE VIEW CHEST CLINICAL HISTORY: Cough FINDINGS: An AP, portable, upright chest radiograph is compared to study dated 01/14/2020. The heart is mildly enlarged. There is pulmonary vascular congestion. There is mild chronic elevation of the right hemidiaphragm. Atelectasis is present at the lung bases. No large pleural effusion or pneumothorax is seen. The skeletal structures appear osteopenic. The bony thorax is grossly intact. IMPRESSION: Cardiomegaly with pulmonary vascular congestion. ACT 112: Negative or not required by law. Electronically signed by: Marcus Peters M.D. 07/10/2021 6:48 PM Dictated:07/10/211846 Transcribed: 07/10/211846 Hospital Course (1) COVID-19: (2) ESRD (end stage renal disease) on dialysis: ASSESSMENT AND PLAN: This is a 41-year-old male who presents with dizziness during dialysis. 1. Dizziness, tachycardia Likely secondary to COVID-19 infection T-max 38.3 Saturating well on room air Chest x-ray cardiomegaly with pulmonary vascular congestion. no infiltrate to suggest Pneumonia Decadron and remdesivir not indicated at this point since pt saturated well on RA Patient is a candidate for monoclonal antibodies, but unable to give it while admitting I called our [facility] extension [phone] today to check if Monoclonal antibody infusion can be given while admitting, unfortunately he cannot get it while admitting in the hospital if not, Discussed with [facility] outpatient PCP, patient referred to [facility] #[phone], they have accepted the patient Clinically stable 2. Elevated of troponin Possible related to demand ischemia, could be from his end-stage renal failure. Troponin 0.1-> 0.23-> 0.22 EKG showed nonspecific anterolateral leads changes Denies any chest pain Continue Carvedilol, atorvastatin, Losartan End-stage renal disease On hemodialysis. Discussed with support group manager Pt had HD today, schedule for HD tomorrow ( already has time for 9:30AM at [facility]) 4. COVID-19: Patient is asymptomatic currently. Received 2 doses of Moderna vaccine, last dose on 09/11/2020. Chest x-ray cardiomegaly with pulmonary vascular congestion. no infiltrate to suggest Pneumonia Decadron and remdesivir not indicated at this point since pt saturated well on RA Patient is a candidate for monoclonal antibodies, but unable to give it while admitting 5. Diabetes: BS elevated in the 300's Pharmacy consulted for glycemia management Continue insulin sliding scale and lantus while in the hospital BS improved 6. Hypertension: Continue his home medications of Coreg, doxazosin, amlodipine, hydralazine. 7. History of asthma: Continue home inhalers. 8. History of obstructive sleep apnea: Plan sleep study as per the Epic notes. CPAP at bedtime if he tolerates Needs follwup. 9. Hyperlipidemia: Continue statin. 10. Deep venous thrombosis prophylaxis: Heparin subcutaneously. 11. Disposition Discharge home today Total Time Total Time Spent Total Time Spent (In Minutes): 35 minutes Discharge Plan Discharge Items Patient Disposition: Home - Self-Care Reason For Visit: DIZZINESS Discharge Diagnosis: COVID-19: ESRD (end stage renal disease) on dialysis: Activity: Resume your previous activity Non-emergency contact: Primary Care Provider Call non-emergency contact if: you have any medication questions Follow-up/Referrals: Dony Salomon MD [Primary Care Provider] - (Date & Time 07/17/2021 3:20 PM Provider Dony Salomon MD Department [facility] PLEASE NOTE THAT THIS IS A TELEMEDICINE APPOINTMENT. PLEASE FOLLOW THE INSTRUCTIONS PROVIDED IN YOUR EMAIL. IF YOU HAVE ANY QUESTIONS REGARDING THIS APPOINTMENT, PLEASE CALL ) Diet: Carb Consistent or DM2 and Dialysis Renal Addtl Attending Provider Instructions: 07/17/2021 3:20 PM Provider Dony Salomon MD Department [facility] PLEASE NOTE THAT THIS IS A TELEMEDICINE APPOINTMENT. PLEASE FOLLOW THE INSTRUCTIONS PROVIDED IN YOUR EMAIL. IF YOU HAVE ANY QUESTIONS REGARDING THIS APPOINTMENT, PLEASE CALL Your next HD is scheduled for tomorrow ( 07/14) Seek medical attention if your symptoms worsening Continue to wear your mask and practice social distance Home Isolation COVID-19 Instructions The following information about Home Isolation is from the CDC Website: https://www.cdc.gov/coronavirus/2019-ncov/hcp/yjnzfils-vqtpbsm-gfhhxp.html Stay home except to get medical care People who are mildly ill with COVID-19 are able to isolate at home during their illness. You should restrict activities outside your home, except for getting medical care. Do not go to work, school, or public areas. Avoid using public transportation, ride-sharing, or taxis. Separate yourself from other people and animals in your home People: As much as possible, you should stay in a specific room and away from other people in your home. Also, you should use a separate bathroom, if eladia ilable. Animals: You should restrict contact with pets and other animals while you are sick with COVID-19, just like you would around other people. Although there have not been reports of pets or other animals becoming sick with COVID-19, it is still recommended that people sick with COVID-19 limit contact with animals until more information is known about the virus. When possible, have another member of your household care for your animals while you are sick. If you are sick with COVID-19, avoid contact with your pet, including petting, snuggling, being kissed or licked, and sharing food. If you must care for your pet or be around animals while you are sick, wash your hands before and after you interact with pets and wear a face mask. Call ahead before visiting your doctor If you have a medical appointment, call the healthcare provider and tell them that you have or may have COVID-19. This will help the healthcare providers office take steps to keep other people from getting infected or exposed. Wear a face mask You should wear a face mask when you are around other people (e.g., sharing a room or vehicle) or pets and before you enter a healthcare providers office. If you are not able to wear a face mask (for example, because it causes trouble breathing), then people who live with you should not stay in the same room with you, or they should wear a face mask if they enter your room. Cover your coughs and sneezes Cover your mouth and nose with a tissue when you cough or sneeze. Throw used tissues in a lined trash can. Immediately wash your hands with soap and water for at least 20 seconds or, if soap and water are not available, clean your hands with an alcohol-based hand logistics management specialist that contains at least 60% alcohol. Clean your hands often Wash your hands often with soap and water for at least 20 seconds, especially after blowing your nose, coughing, or sneezing; going to the bathroom; and before eating or preparing food. If soap and water are not readily available, use an alcohol-based hand logistics management specialist with at least 60% alcohol, covering all surfaces of your hands and rubbing them together until they feel dry. Soap and water are the best option if hands are visibly dirty. Avoid touching your eyes, nose, and mouth with unwashed hands. Avoid sharing personal household items You should not share dishes, drinking glasses, cups, eating utensils, towels, or bedding with other people or pets in your home. After using these items, they should be washed thoroughly with soap and water. Clean all high-touch surfaces everyday High touch surfaces include counters, tabletops, doorknobs, bathroom fixtures, toilets, phones, keyboards, tablets, and bedside tables. Also, clean any surfaces that may have blood, stool, or body fluids on them. Use a household cleaning spray or wipe, according to the label instructions. Labels contain instructions for safe and effective use of the cleaning product including precautions you should take when applying the product, such as wearing gloves and making sure you have good ventilation during use of the product. Monitor your symptoms Seek prompt medical attention if your illness is worsening (e.g., difficulty breathing).Beforeseeking care, call your healthcare provider and tell them that you have, or are being evaluated for, COVID-19. Put on a face mask before you enter the facility. These steps will help the healthcare providers office to keep other people in the office or waiting room from getting infected or exposed. Ask your healthcare provider to call the local or state health department. Persons who are placed under active monitoring or facilitated self- monitoring should follow instructions provided by their local health department or occupational health professionals, as appropriate. When working with your local health department check their available hours. If you have a medical emergency and need to call 911, notify the dispatch personnel that you have, or are being evaluated for COVID-19. If possible, put on a face mask before emergency medical services arrive. Discontinuing home isolation Patients with confirmed COVID-19 should remain under home isolation precautions until the risk of secondary transmission to others is thought to be low. The decision to discontinue home isolation precautions should be made on a tbau-ol-tryx basis, in consultation with healthcare providers and state and local health departments. Coronavirus disease 2019 (COVID-19) is a virus that causes a respiratory illness. It is caused by a coronavirus called 2019 novel coronavirus (2019- nCoV). There are many types of coronavirus. Coronaviruses are a very common cause of bronchitis. They may sometimes cause lung infection(pneumonia). Symptoms can range from mild to severe respiratory illness. These viruses are also foundin some animals. COVID-19 was first found in people in [facility], in late 2018. In 2020, several cases of COVID-19 have been confirmed in the [place] Public health officials are working to find the source. How the virus spreads is not yet fully known. It may be spread through droplets of fluid that a person coughs or sneezes into the air. It may be spread if you touch a surface with virus on it, such as a handle or object, and then touch your mouth. What are the symptoms of COVID-19? Some people have no symptoms or mild symptoms. Symptoms may appear 2 to 14 days after contact with the virus. Symptoms can include: Fever Coughing Trouble breathing What are possible complications from COVID-19? In many cases, this virus can cause infection (pneumonia) in both lungs. In some cases, this can cause . How is COVID-19 diagnosed? Your healthcare provider will ask about your symptoms. He or she will also ask about your recent travel and contact with sick people. Testing for the virus is only done through the CDC. If yourhealthcare provider thinks you may have COVID- 19, he or she will work with your local health department and the CDC on testing. Follow all instructions from your healthcare provider. COVID-19 is diagnosed by: Nasal and throat swab. A cotton-tipped swab is wiped inside your nose or throat. This is done to check for viruses in your nasal mucus. Sputum culture. A small sample of mucus coughed from your lungs (sputum) is c ollected if you have a cough. It is checked for the virus. How is COVID-19 treated? There is currently no medicine to treat the virus. Treatment is done to help your body while it fights the virus. This is known as supportive care. Supportive care may include: Pain medicine. These include acetaminophen and ibuprofen. They are used to help ease pain and reduce fever. Bed rest. This helps your body fight the illness. For severe illness, you may need to stay in the hospital. Care during severe illness may include: IV (intravenous) fluids.These are given through a vein to help keep your body hydrated. Oxygen. Supplemental oxygen or ventilation with a breathing machine (ventilator) may be given. This is done to keep enough oxygen in your body. Are you at risk for COVID-19? If youve been to a place where people have been sick with this virus, you are at risk for infection. You are at risk if you: Recently traveled to an affected area Had contact with a sick person who recently traveled to this area Had contact with a person who was diagnosed with COVID-19 How can COVID-19 be prevented? There is no vaccine yet. The best prevention is to not have contact with the virus. The CDC advises that people should not travel to areas where there are COVID-19 outbreaks right now for any reason that is not urgent. To help prevent spreading the infection, wash your hands often, or use an alcohol-basedhand logistics management specialist. If you are in an area with COVID-19: Wash your hands often. Or use an alcohol-based hand logistics management specialist often. Only touch your eyes, nose, or mouth with clean hands. Dont have contact with people who are sick. Follow local instructions about being in public. For example, you may be told to not use public transport for a period of time. Stay away from markets that have live or animals. Wash your hands after touching any animals. Don't touch animals that may be sick. Dont share eating or drinking tools with sick people. Dont kiss someone who is sick. Clean surfaces often with disinfectant. If you were in an area with COVID-19 in the last 14 days: Call your healthcare provider. He or she can talk with local health staff to see what action may be needed. Follow all instructions from your provider. Take your temperature every morning and evening for at least 14 days. This is to check for fever. Keep a record of the readings. Keep watch for symptoms of the virus. Tell your provider right away if you have symptoms. If you were in an area with COVID-19 and have a fever or other symptoms: Dont panic. Keep in mind that other illnesses can cause similar symptoms. Stay away from work, school, and public places. Limit physical contact with family members. Don't kiss anyone or share eating or drinking utensils. Clean surfaces you touch with disinfectant. This is to help prevent the virus from spreading. Call your healthcare provider. Explain that you have been exposed to COVID-19 and have symptoms. Do this before going to any hospital. Wait for instructions. Keep in mind that healthcare staff may wear protective equipment such as masks, gowns, gloves, and eye protection. You may be put in a separate room. This is to prevent the possible virus from spreading. Tell the healthcare staff about recent travel. This includes local travel on public transport. Staff may need to find other people you have been in contact with. Follow all instructions the healthcare staff give you. If you have been diagnosed with COVID-19 Follow all instructions from your healthcare provider. Dont leave your home, except to get medical care. Call your healthcare providers office before going. They can prepare and give you instructions. This will help prevent the virus from spreading. Dont go to work, school, or public areas. Dont use public transport or taxis. Stay away from other people in your home. Have them wear face masks around you. Dont share household items or food. Wear a face mask if you can. This includes at home or in a medical facility. Cover your face with a tissue when you cough or sneeze. Throw the tissue away. Wash your hands. Wash your hands often. Caregivers should: Follow all instructions from healthcare staff. Wear a face mask and protective clothing as advised. Wash hands often. Keep track of the sick persons symptoms. Clean surfaces, fabrics, and laundry thoroughly. Keep other people away from the sick person. When to call your healthcare provider Call your healthcare provider: If youve recently traveled and have symptoms If you have been diagnosed with COVID-19 and your symptoms are worse To learn more To find out more about COVID-19, visit the CDC website at www.cdc.gov/coronavirus/2019-ncov/index.html. [employer]. [address] [place] [address]. All rights reserved. This information is not intended as a substitute for professional medical care. Always follow your healthcare professional's instructions. This information has been adapted from [employer] Pending Studies at Discharge: No Stand-Alone Forms: My [facility], Smoking Cessation Medications and DC Order Prescriptions: New guaifenesin 200 mg tablet 200 mg PO TID PRN (Reason: cough) Qty: 5 RF: 0 Continued atorvastatin 40 mg Tablet 80 mg PO PM Qty: 0 RF: 0 carvedilol [Coreg] 25 mg Tablet 50 mg PO BID Qty: 0 RF: 0 amlodipine 10 mg Tablet 10 mg PO PM Qty: 0 RF: 0 hydralazine 100 mg Tablet 100 mg PO BID Qty: 0 RF: 0 albuterol sulfate 90 mcg/actuation Hfa Aerosol Inhaler 2 puff INHALATION Q4H PRN (Reason: Shortness Of Breath) RF: 0 acetaminophen 500 mg Tablet 500 mg PO QID PRN (Reason: Pain) RF: 0 sildenafil [Viagra] 100 mg Tablet 100 mg PO DAILY PRN (Reason: Erectile Dysfunction) RF: 0 montelukast 10 mg Tablet 10 mg PO QAM RF: 0 losartan 100 mg Tablet 100 mg PO PM RF: 0 loratadine 10 mg Tablet 10 mg PO DAILY PRN (Reason: Allergy Symptoms) RF: 0 insulin aspart U-100 [Novolog Flexpen U-100 Insulin] 100 unit/mL (3 mL) Insulin Pen 0 unit SUBCUT AC RF: 0 Velphoro 500 mg Tablet,Chewable 1,000 mg PO AC RF: 0 Auryxia 210 mg iron Tablet 210 mg PO AC RF: 0 Breo Ellipta 100-25 mcg/dose blister with device 1 inh INHALATION DAILY RF: 0 doxazosin 4 mg tablet 4 mg PO HS RF: 0 Tresiba FlexTouch U-200 200 unit/mL (3 mL) insulin pen 30 unit SUBCUT DAILY RF: 0 Discharge Orders: Discharge Order (Routine); Ordered 07/13/21 Ordered By: Sofiya Pedroza/Other Patient Handouts: COVID-19 Home Care, Diabetes and Kidney Disease Admission Data Admit Date/Time: 07/10/21 21:19 Attending Provider: Sofiya Castrejon Admit Provider: Blane Milton Primary Care Provider: Dony Salomon Other Providers: Blane Milton ; Yuliet Rasmussen ; Te Murry Other Interventions: Discharge Summary Assessment (RN) Last Done: 07/13/21 17:22
== END 2021-07-13 19:08 | disposition home or self-care (01) | DRG 177 ==
LOC: ED 14:55 → SUATTDRO 21:19 → 2W 21:19